=== PATIENT | female | born 1940 | race Caucasian/White ===

== ENCOUNTER → 2016-05-01 | Outpatient (CLI) | payer MEDICARE ==
--- NOTE | 2016-05-01 13:34 | MM ---
Reason for exam: history of breast cancer, mastectomy. Last mammogram was performed 1 year ago. History: Patient is postmenopausal and has history of breast cancer at age 47. Family history of breast cancer in sister at age 64 and breast cancer in mother. Benign excisional biopsy of the right breast, 2010. Mastectomy of the left breast, 1987. Chemotherapy. Took estrogen for 6 years beginning at age 41. Physical Findings: Nurse did not find any significant physical abnormalities on exam. MG 3D Diag Mammo W/Cad RT CC and MLO view(s) were taken of the right breast. Prior study comparison: April 30, 2015, right breast MG 3d diag mammo w/cad RT. April 10, 2014, right breast MG diagnostic mammo RT w CAD. The breast tissue is heterogeneously dense. This may lower the sensitivity of mammography. Benign calcifications. Previous mammotome biopsy in the right breast. Nodular density inner lower right breast stable since 2011. These results were verbally communicated with the patient and result sheet given to the patient on 05/01/16. ASSESSMENT: Benign, BI-RAD 2 RECOMMENDATION: Follow-up diagnostic mammogram of the right breast in 1 year.
== END ==
LOC: RADMAMWWP 12:49
PROVIDERS: ATTEND Internal Medicine Hematology & Oncology
DX: Z85.3 Personal history of malignant neoplasm of breast (principal)
CPT/HCPCS: 77051; G0206; G0279

== ENCOUNTER → 2017-05-03 | Outpatient (CLI) | payer MEDICARE ==
--- NOTE | 2017-05-03 11:22 | MM ---
Reason for exam: additional evaluation requested from prior study. Last mammogram was performed 1 year ago. History: Patient is postmenopausal and has history of breast cancer at age 47. Family history of breast cancer in sister at age 64 and breast cancer in mother. Benign excisional biopsy of the right breast, 2010. Mastectomy of the left breast, 1987. Chemotherapy. Took estrogen for 6 years beginning at age 41. Physical Findings: Nurse did not find any significant physical abnormalities on exam. MG 3D Diag Mammo W/Cad RT CC and MLO view(s) were taken of the right breast. Prior study comparison: May 01, 2016, right breast MG 3d diag mammo w/cad RT. April 30, 2015, right breast MG 3d diag mammo w/cad RT. The breast tissue is heterogeneously dense. This may lower the sensitivity of mammography. Finding: There are typically benign round calcifications in the right breast. Previous mammotome biopsy in the right breast. There is no discrete abnormality. These results were verbally communicated with the patient and result sheet given to the patient on 05/03/17. ASSESSMENT: Benign, BI-RAD 2 RECOMMENDATION: Follow-up diagnostic mammogram of the right breast in 1 year.
== END | disposition home or self-care (01) ==
LOC: RADMAMWWP 10:22
PROVIDERS: ATTEND Internal Medicine Hematology & Oncology
DX: Z08 Encounter for follow-up examination after completed treatment for malignant neoplasm (principal); Z85.3 Personal history of malignant neoplasm of breast
CPT/HCPCS: 77065; G0279

== ENCOUNTER → 2017-06-21 | Outpatient (CLI) | payer MEDICARE ==
--- NOTE | 2017-06-21 14:22 | BD ---
EXAMINATION TYPE: MG DEXA axial skeleton. DATE OF EXAM: 06/21/2017 COMPARISON: Most recent DEXA bone scan April 26, 2015. CLINICAL HISTORY: Postmenopausal female. Disorder of bone density in structure per order. Height: 61.5 Weight: 143.8 FRAX RISK QUESTIONS: Alcohol (3 or more units per day): no Family History (Parent hip fracture): no Glucocorticoids (More than 3mos): no (Ex: prednisone, prednisolone, methylprednisolone, dexamethasone, and hydrocortisone). History of Fracture in Adulthood: yes Secondary Osteoporosis: 1. Type 1 Diabetes: no 2. Hyperthyroidism: no 3. Menopause before 45: yes 4. Malnutrition: no 5. Chronic liver disease: no Rheumatoid Arthritis: no Current Tobacco Use: no RISK FACTORS HISTORY OF: Surgery to Spine/Hip(right/left)/Wrist (right/left): no Family History of Osteoporosis: yes Active: yes Diet low in dairy products/other sources of calcium: no Postmenopausal woman: hysterectomy 1982 Lost more than 2 inches in height since high school: no Frequent falls: no Adrenal Insufficiency: no MEDICATIONS: Lipitor, metformin, Prilosec Additional History: EXAM MEASUREMENTS: Bone mineral densitometry was performed using the [employer] System. Bone mineral density as measured about the Lumbar spine is: ----- L1-L4(G/cm2): 1.230 T Score Values are as follows: ----- L2: 0.5 ----- L3: 2.1 ----- L4: 0.9 ----- L1-L4: 0.4 Bone mineral density has: increased 6.1 % since study of: 04.26.2015 Bone mineral density about the R hip (g/cm2): 0.949 Bone mineral density about the L hip (g/cm2): 0.946 T Score values are as follows: -----R Neck: -0.6 -----L Neck: -0.7 -----R Total: -0.1 -----L Total: -0.2 Bone mineral density has: decreased -0.5 % since study of: 04.26.2015 IMPRESSION: Normal (Values between +1 and -1 indicate normal bone mass). Consider repeating this study in 5 year s or sooner if there is some new clinical indication. No significant change in bone density from prio r. NOTE: T-SCORE=SD OF THE YOUNG ADULT MEAN.
== END | disposition home or self-care (01) ==
LOC: RADBDWWP 13:20
PROVIDERS: ATTEND Family Medicine
DX: M85.9 Disorder of bone density and structure, unspecified (principal)
CPT/HCPCS: 77080

== ENCOUNTER → 2018-05-21 | Outpatient (CLI) | payer MEDICARE ==
--- NOTE | 2018-05-21 14:14 | MM ---
Reason for exam: additional evaluation requested from prior study. Last mammogram was performed 1 year and 1 month ago. History: Patient is postmenopausal and has history of breast cancer at age 47. Family history of breast cancer in sister at age 64 and breast cancer in mother. Benign excisional biopsy of the right breast, 2010. Mastectomy of the left breast, 1987. Chemotherapy. Took estrogen for 6 years beginning at age 41. Physical Findings: Nurse did not find any significant physical abnormalities on exam. MG 3D Diag Mammo W/Cad RT CC and MLO view(s) were taken of the right breast. Prior study comparison: May 03, 2017, right breast MG 3d diag mammo w/cad RT. May 01, 2016, right breast MG 3d diag mammo w/cad RT. The breast tissue is heterogeneously dense. This may lower the sensitivity of mammography. There are benign appearing round calcifications in the right breast. Previous mammotome biopsy in the right breast. There is no discrete abnormality. These results were verbally communicated with the patient and result sheet given to the patient on 05/21/18. ASSESSMENT: Benign, BI-RAD 2 RECOMMENDATION: Follow-up diagnostic mammogram of the right breast in 1 year.
== END | disposition home or self-care (01) ==
LOC: RADMAMWWP 12:36
PROVIDERS: ATTEND Family Medicine
DX: Z08 Encounter for follow-up examination after completed treatment for malignant neoplasm (principal); Z90.12 Acquired absence of left breast and nipple; Z85.3 Personal history of malignant neoplasm of breast
CPT/HCPCS: 77065; G0279; 77061

== ENCOUNTER → 2018-05-25 | Outpatient (CLI) | payer MEDICARE ==
--- NOTE | 2018-05-25 12:01 | XR ---
EXAMINATION TYPE: XR chest 2V, XR ribs RT DATE OF EXAM: 05/25/2018 COMPARISON: NONE HISTORY: Chest and right-sided rib pain after coughing injury. TECHNIQUE: Frontal and lateral views of the chest are obtained. A frontal and oblique images of righ t-sided ribs are acquired. FINDINGS: There is chronic parenchymal change without suspicious focal air space opacity, pleural ef fusion, or pneumothorax seen. The cardiac silhouette size is upper limits of normal with atheroscler otic and ectatic thoracic aorta. Slight underlying levoconvex scoliotic curvature is present. Osseous structures are somewhat demineralized. Dedicated images of right-sided ribs show age-indeterminate but suspected old displaced fractures pos terior lateral right seventh and eighth rib. Overlying soft tissue is unremarkable. IMPRESSION: 1. Chronic changes without acute pulmonary process. 2. Age-indeterminate but suspected old displaced fractures posterior lateral right seventh and eighth ribs.
== END | disposition home or self-care (01) ==
LOC: RADXRMAIN 11:29
PROVIDERS: ATTEND Physician Assistant Medical
DX: R91.8 Other nonspecific abnormal finding of lung field (principal); R07.82 Intercostal pain; M81.0 Age-related osteoporosis without current pathological fracture
CPT/HCPCS: 71046

== ENCOUNTER → 2019-01-08 | Outpatient (CLI) | payer MEDICARE ==
[~2019-01-08] MED LIST: SODIUM CHLORIDE 0.9% 500 ML 500 ML in EMPTY BAG 1 BAG IV PRN; ZOLEDRONIC ACID 5 MG in SODIUM CHLORIDE 0.9% 100 ML IV NR
[2019-01-08 10:51] VITALS: BP 151/79; PULSE 70; RESP 16; TEMP 98.1
== END ==
LOC: PROCWHC3 10:28
PROVIDERS: ATTEND Family Medicine
DX: M81.0 Age-related osteoporosis without current pathological fracture (principal)
CPT/HCPCS: 96365; J3489

== ENCOUNTER → 2019-05-26 | Outpatient (CLI) | payer MEDICARE ==
--- NOTE | 2019-05-26 16:09 | XR ---
EXAMINATION TYPE: XR cervical spine comp DATE OF EXAM: 05/26/2019 TECHNIQUE: Frontal, lateral, oblique, swimmers, and open mouth view of the cervical spine are obtaine d. HISTORY: M54.2 cervicalgia COMPARISON: None FINDINGS: There is retrolisthesis that is mild of C3 on C4 and C4 on C5. No abnormal prevertebral sof t tissue swelling. Multilevel facet arthropathy. Mild bilateral neural foraminal narrowing at C2-C3 a nd C3-C4 on the right as well as at C2-C3 on the left radiographically. Extensive atherosclerosis of the carotid arteries. Odontoid appears intact. Diffuse osseous demineralization is seen. No compressi on deformity of the cervical spine. IMPRESSION: 1. No acute fracture of the cervical spine. 2. Multilevel malalignment, likely on a degenerative basis. 3. Incidentally noted extensive bilateral carotid arterial calcifications. Carotid arterial ultrasoun d could be performed for further evaluation. 4. Moderate multilevel degenerative disc disease of the cervical spine. 5. Diffuse osseous demineralization.
== END | disposition home or self-care (01) ==
LOC: RADXRMAIN 14:06
PROVIDERS: ATTEND Family Medicine
DX: M50.30 Other cervical disc degeneration, unspecified cervical region (principal); M81.0 Age-related osteoporosis without current pathological fracture
CPT/HCPCS: 72050

== ENCOUNTER → 2019-07-03 | Outpatient (CLI) | payer MEDICARE ==
--- NOTE | 2019-07-04 09:44 | MM ---
Reason for exam: additional evaluation requested from prior study. Last mammogram was performed 1 year and 1 month ago. History: Patient is postmenopausal and has history of breast cancer at age 47. Family history of breast cancer in sister at age 64 and breast cancer in mother. Benign excisional biopsy of the right breast, 2010. Mastectomy of the left breast, 1987. Chemotherapy. Took estrogen for 6 years beginning at age 41. Physical Findings: Nurse did not find any significant physical abnormalities on exam. MG 3D Diag Mammo W/Cad RT CC, MLO, XCCL, and spot compression CC view(s) were taken of the right breast. Prior study comparison: May 21, 2018, right breast MG 3d diag mammo w/cad RT. May 03, 2017, right breast MG 3d diag mammo w/cad RT. The breast tissue is heterogeneously dense. This may lower the sensitivity of mammography. Benign appearing calcifications in the right breast. Lateral right asymmetry resolves on additional views. Right biopsy marker. These results were verbally communicated with the patient and result sheet given to the patient on 07/03/19. ASSESSMENT: Benign, BI-RAD 2 RECOMMENDATION: Follow-up diagnostic mammogram of the right breast in 1 year.
== END | disposition home or self-care (01) ==
LOC: RADMAMWWP 13:37
PROVIDERS: ATTEND Family Medicine
DX: Z08 Encounter for follow-up examination after completed treatment for malignant neoplasm (principal); Z85.3 Personal history of malignant neoplasm of breast; Z90.12 Acquired absence of left breast and nipple
CPT/HCPCS: 77065; G0279; 77061

== ENCOUNTER 2020-02-23 13:09 | Emergency (ER) | payer MEDICARE ==
[2020-02-23 13:14] VITALS: TEMP 98.3
[2020-02-23] MEDS ORDERED: HYDROmorphone 1 MG/ML 1 ML SYRINGE IM STA (13:30)
--- NOTE | 2020-02-23 14:00 | XR ---
EXAMINATION TYPE: XR thoracic spine 2V DATE OF EXAM: 02/23/2020 CLINICAL HISTORY: Fall with mid back pain. TECHNIQUE: Frontal, lateral, and swimmer's view of thoracic spine are obtained. COMPARISON: None. FINDINGS: Osseous structures are demineralized. Thoracic spine show satisfactory alignment without ev idence of acute fracture or dislocation. Moderate disc space narrowing L1-L2 level. Vertebral body h eights and disc space heights otherwise are preserved. Visualized ribs are intact bilaterally. Athero sclerotic change overlying abdominal aorta. IMPRESSION: No acute fracture or dislocation is seen in the thoracic spine.
--- NOTE | 2020-02-23 14:00 | ED ---
Fall HPI - General Chief Complaint: Fall Stated Complaint: fall, low back pain Time Seen by Provider: 02/23/20 13:20 Source: patient, RN notes reviewed Mode of arrival: wheelchair - History of Present Illness Initial Comments: This is an 79-year-old female sent emergency Department chief complaint of a trip and fall. Patient states she was stepping over a small fence when she caught her heel. Patient fell onto her left side. Patient went left-sided rib pain, mid back pain. No abdominal pain no anterior chest pain no head injury no loss conscious denies any neck pain. Patient states that she has pain with any movement and deep inspiration does not feel short of breath at rest. Denies blood thinners. - Related Data Home Medications Medication Instructions Recorded Confirmed Atorvastatin [Lipitor] 80 mg PO HS 01/02/14 01/08/19 Calcium Carbonate/Vitamin D3 1 each PO BID 01/02/14 01/08/19 [Caltrate 600 Plus D3 Tablet] Fish Oil/Dha/Epa [Fish Oil 1,200 1 each PO BID 01/02/14 01/08/19 mg Fish Oil] Gluc HCl/Andrew/Mv/Min Aa/Hb 162 1 each PO DAILY 01/02/14 01/08/19 [Glucosamine-Chondroitin Caplet] Omeprazole [PriLOSEC] 20 mg PO DAILY 01/02/14 01/08/19 Uafcfck-Bolc-Dqlk [id number] 2 each PO DAILY PRN 09/09/14 01/08/19 [Excedrin] Cinnamon Bark [Cinnamon] 1,000 mg PO BID 09/09/14 01/08/19 Multivitamins, Thera [Multivitamin 1 each PO DAILY 09/09/14 01/08/19 (formulary)] metFORMIN HCL [Glucophage] 850 mg PO BID 02/22/17 01/08/19 Previous Rx's Medication Instructions Recorded Aspirin 325 mg PO DAILY #30 tab 09/12/14 Ibuprofen [Motrin] 600 mg PO Q8HR PRN #20 tab 02/23/20 Allergies Allergy/AdvReac Type Severity Reaction Status Date / Time sulfamethoxazole Allergy Anaphylaxis Verified 02/23/20 13:14 [From Bactrim] trimethoprim [From Bactrim] Allergy Anaphylaxis Verified 02/23/20 13:14 Review of Systems ROS Statement: Those systems with pertinent positive or pertinent negative responses have been documented in the HPI. ROS Other: All systems not noted in ROS Statement are negative. Past Medical History Past Medical History: Coronary Artery Disease (CAD), Cancer, Hyperlipidemia Additional Past Medical History / Comment(s): Breast - 1988. OSTEOPOROSIS. History of Any Multi-Drug Resistant Organisms: None Reported Past Surgical History: Breast Surgery, Hysterectomy, Orthopedic Surgery Additional Past Surgical History / Comment(s): left breast mastectomy, left leg stent, ankle/foot sx Past Anesthesia/Blood Transfusion Reactions: No Reported Reaction Past Psychological History: No Psychological Hx Reported Smoking Status: Never smoker Past Alcohol Use History: None Reported Past Drug Use History: None Reported - Past Family History Mother Family Medical History: Cancer Additional Family Medical History / Comment(s): breast Sister(s) Family Medical History: Cancer, Deep Vein Thrombosis (DVT) Additional Family Medical History / Comment(s): breast ca Brother(s) Family Medical History: Cancer Additional Family Medical History / Comment(s): colon General Exam Limitations: no limitations General appearance: alert, in no apparent distress Head exam: Present: atraumatic, normocephalic, normal inspection Eye exam: Present: normal appearance, PERRL, EOMI. Absent: scleral icterus, conjunctival injection, periorbital swelling Neck exam: Present: normal inspection, full ROM. Absent: tenderness, meningismus, lymphadenopathy Respiratory exam: Present: normal lung sounds bilaterally, chest wall tenderness (Moderate left lateral to posterior rib tenderness, no ecchymosis, no obvious deformity). Absent: respiratory distress, wheezes, rales, rhonchi, stridor Cardiovascular Exam: Present: regular rate, normal rhythm, normal heart sounds. Absent: systolic murmur, diastolic murmur, rubs, gallop, clicks GI/Abdominal exam: Present: soft, normal bowel sounds. Absent: distended, tenderness, guarding, rebound, rigid Back exam: Present: full ROM, tenderness, paraspinal tenderness (Thoracic), vertebral tenderness Neurological exam: Present: alert, oriented X3, CN II-XII intact, reflexes normal. Absent: motor sensory deficit Skin exam: Present: warm, dry, intact, normal color. Absent: rash Course Vital Signs 02/23/20 02/23/20 13:12 14:05 Temperature 98.3 F Pulse Rate 75 63 Respiratory 20 18 Rate Blood Pressure 190/103 142/77 O2 Sat by Pulse 99 92 L Oximetry Medical Decision Making - Medical Decision Making X-rays reviewed by radiologist no acute fracture or pneumothorax no thoracic fracture though upon review appears to be a nondisplaced rib fracture no pneumothorax. Patient was discharged with symptoms from her, pain medication with close follow-up. Disposition Clinical Impression: Fall, Left rib fracture Disposition: HOME SELF-CARE Condition: Stable Instructions (If sedation given, give patient instructions): Rib Fracture (ED) Additional Instructions: Please return to the Emergency Department if symptoms worsen or any other concerns. Prescriptions: Ibuprofen [Motrin] 600 mg PO Q8HR PRN #20 tab PRN Reason: Pain Is patient prescribed a controlled substance at d/c from ED?: No Referrals: Dony Bravo DO [Primary Care Provider] - 1-2 days Time of Disposition: 14:16
--- NOTE | 2020-02-23 14:04 | XR ---
EXAMINATION TYPE: XR ribs LT w pa chest xray DATE OF EXAM: 02/23/2020 CLINICAL HISTORY: Fall with chest pain. TECHNIQUE: Single frontal view of the chest is obtained. Frontal and oblique images left-sided ribs. COMPARISON: Chest x-ray May 25, 2018 FINDINGS: There is chronic parenchymal changes without suspicious new focal air space opacity, pleur al effusion, or pneumothorax seen. The cardiac silhouette size is stable and upper limits of normal with atherosclerotic aorta. The osseous structures are demineralized. Fracture deformities lateral mid ribs redemonstrated. Dedicated images the left-sided ribs show no acute displaced fracture. Overlying soft tissue is unrem arkable. IMPRESSION: 1. Chronic parenchymal changes without new acute pulmonary process. 2. No acute displaced left-sided rib fractures are seen.
[2020-02-23 14:08] VITALS: BP 142/77; PULSE 63; RESP 18
[2020-02-23] MEDS ORDERED: ACET/COD 300 MG/30 MG STARTER PACK 6 TAB BTL PO STA (14:17)
== END 2020-02-23 14:36 | disposition home or self-care (01) ==
LOC: EC 13:09
DX: S22.32XA Fracture of one rib, left side, initial encounter for closed fracture (principal); E78.5 Hyperlipidemia, unspecified; Z79.899 Other long term (current) drug therapy; Z88.1 Allergy status to other antibiotic agents; Z88.2 Allergy status to sulfonamides; Z90.12 Acquired absence of left breast and nipple; Z85.3 Personal history of malignant neoplasm of breast; Z80.3 Family history of malignant neoplasm of breast; W01.0XXA Fall on same level from slipping, tripping and stumbling without subsequent striking against object, initial encounter; Y92.009 Unspecified place in unspecified non-institutional (private) residence as the place of occurrence of the external cause
CPT/HCPCS: 99283 ×2; 96372 ×2; 71101; 72070; J1170

== ENCOUNTER → 2020-06-29 | Outpatient (CLI) | payer MEDICARE ==
--- NOTE | 2020-06-29 13:37 | BD ---
EXAMINATION TYPE: Axial Bone Density DATE OF EXAM: 06/29/2020 COMPARISON: Prior DEXA bone scan May 06, 2015. CLINICAL HISTORY: Postmenopausal female with age-related osteoporosis. Height: 5 FT 1 IN Weight: 139 FRAX RISK QUESTIONS: Alcohol (3 or more units per day): NO Family History (Parent hip fracture): NO Glucocorticoids (More than 3mos): NO (Ex: prednisone, prednisolone, methylprednisolone, dexamethasone, and hydrocortisone). History of Fracture in Adulthood: YES Secondary Osteoporosis: 1. Type 1 Diabetes: NO 2. Hyperthyroidism: NO 3. Menopause before 45: YES 4. Malnutrition: NO 5. Chronic liver disease: NO Rheumatoid Arthritis: NO Current Tobacco Use: NO RISK FACTORS HISTORY OF: Family History of Osteoporosis: UNSURE Active: NO Diet low in dairy products/other sources of calcium: NO Postmenopausal woman: TOTAL HYST AGE 41 Take estrogen and/or progesterone medications: FOR A SHORT TIME Lost more than 2 inches in height since high school: YES MEDICATIONS: Additional Medications: LIPITOR, METFORMIN, PRILOSEC, Additional History: BREAST CANCER 1987 CHEMO EXAM MEASUREMENTS: Bone mineral densitometry was performed using the [employer] System. Bone mineral density as measured about the Lumbar spine is: ----- L1-L4(G/cm2): 1.279 T Score Values are as follows: ----- L2: 0.5 ----- L3: 2.7 ----- L4: 1.9 ----- L1-L4: 0.8 Bone mineral density has: INCREASED 4.5 % since study of: 2017 Bone mineral density about the R hip (g/cm2): 0.987 Bone mineral density about the L hip (g/cm2): 0.984 T Score values are as follows: -----R Neck: -0.4 -----L Neck: -0.4 -----R Total: 0.0 -----L Total: -0.1 Bone mineral density has: INCREASED 2.1 % since study of: 2018 IMPRESSION: Normal (Values between +1 and -1 indicate normal bone mass). Consider repeating this study in 5 year s or sooner if there is some new clinical indication. NOTE: T-SCORE=SD OF THE YOUNG ADULT MEAN.
== END ==
LOC: RADBDWWP 09:13
PROVIDERS: ATTEND Family Medicine
DX: M81.0 Age-related osteoporosis without current pathological fracture (principal); Z78.0 Asymptomatic menopausal state; Z85.3 Personal history of malignant neoplasm of breast
CPT/HCPCS: 77080

== ENCOUNTER → 2020-07-30 | Outpatient (CLI) | payer MEDICARE ==
[2020-07-30 10:43] VITALS: BP 178/82; PULSE 72; RESP 15; TEMP 98.2
== END ==
LOC: PROCWHC3 10:06
PROVIDERS: ATTEND Family Medicine
DX: M81.0 Age-related osteoporosis without current pathological fracture (principal)
CPT/HCPCS: 96365; J3489

== ENCOUNTER → 2020-08-05 | Outpatient (CLI) | payer MEDICARE ==
--- NOTE | 2020-08-05 17:14 | MR ---
EXAMINATION TYPE: MR cervical spine wo con DATE OF EXAM: 08/05/2020 COMPARISON: Radiograph 05/26/2019 HISTORY: 80-year-old female Neck pain, headaches x 1 year. M54.2, M5032. TECHNIQUE: Multiplanar, multisequence images of the cervical spine were acquired. FINDINGS: No craniocervical junction abnormality, predental space widening, or prevertebral soft tissue swellin g. There is a round 9 mm T2 mildly hyperintense in T1 intermediate intensity lesion within the right jose e of the nasopharynx. A CT in 3 months is recommended to reassess and exclude any enlarging mass. Mild to moderate multilevel disc/endplate degenerative change, greatest from C4 through C7 levels wit h disc space narrowing, discussed by complex formation, and accentuated cervical lordosis. Overall alignment is maintained. There is some dextroconvex curvature of the cervical spine that coul d be due to muscle spasm, positioning, or underlying scoliosis below. There is multilevel facet and uncovertebral joint arthropathy. Ligamentum flavum thickening noted fro m C3 through C7 levels. Changes result in mild overall narrowing of the spinal canal throughout these levels from C3 through C7. No high-grade canal compromise or cord compression. At C2-C3, no significant neural foraminal stenosis. At C3-C4, facet arthropathy without significant neuroforaminal stenosis. At C4-C5, facet and uncovertebral joint arthropathy with mild right neural foraminal stenosis. At C5-C6, facet and uncovertebral joint arthropathy. Mild right neural foraminal stenosis. At C6-C7, facet and uncovertebral joint arthropathy with mild right neural foraminal stenosis. At C7-T1, no significant neural foraminal stenosis. No prevertebral or paravertebral soft tissue abnormality otherwise seen. Normal course, caliber, and signal intensity of the cervical spinal cord. IMPRESSION: 1. Moderate degenerative disc disease from C3 through C7 levels with corresponding ligamentum flavum thickening, accentuated cervical lordosis, multilevel facet and uncovertebral joint arthropathy. 2. Changes result in mild narrowing of the spinal canal from C3 through C7. No high-grade canal compr omise or cord compression. 3. Variable mild neural foraminal stenoses as outlined above. 4. A 9 mm lesion within the right side of the nasopharynx. Recommend contrast enhanced CT soft tissue neck in 3 months to reassess and exclude any enlarging mass. A mucosal retention cyst is suspected.
== END | disposition home or self-care (01) ==
LOC: RADMRIMAIN 14:37
PROVIDERS: ATTEND Family Medicine
DX: M48.02 Spinal stenosis, cervical region (principal); M50.321 Other cervical disc degeneration at C4-C5 level; M50.322 Other cervical disc degeneration at C5-C6 level; M50.323 Other cervical disc degeneration at C6-C7 level
CPT/HCPCS: 72141

== ENCOUNTER → 2020-08-25 | Outpatient (CLI) | payer MEDICARE ==
--- NOTE | 2020-08-25 11:34 | MM ---
Reason for exam: additional evaluation requested from prior study. Last mammogram was performed 1 year and 2 months ago. History: Patient is postmenopausal and has history of breast cancer at age 47. Family history of breast cancer in sister at age 64 and breast cancer in mother. Benign excisional biopsy of the right breast, 2010. Mastectomy of the left breast, 1987. Chemotherapy. Took estrogen. Physical Findings: Nurse did not find any significant physical abnormalities on exam. MG 3D Diag Mammo W/Cad RT CC and MLO view(s) were taken of the right breast. Prior study comparison: July 03, 2019, right breast MG 3d diag mammo w/cad RT. May 21, 2018, right breast MG 3d diag mammo w/cad RT. The breast tissue is heterogeneously dense. This may lower the sensitivity of mammography. Stable benign calcifications. There is no discrete abnormality. No significant new findings when compared with previous films. These results were verbally communicated with the patient and result sheet given to the patient on 08/25/20. ASSESSMENT: Benign, BI-RAD 2 RECOMMENDATION: Follow-up diagnostic mammogram of the right breast in 1 year.
== END | disposition home or self-care (01) ==
LOC: RADMAMWWP 10:45
PROVIDERS: ATTEND Family Medicine
DX: R92.1 Mammographic calcification found on diagnostic imaging of breast (principal); Z78.0 Asymptomatic menopausal state; Z85.3 Personal history of malignant neoplasm of breast; Z80.3 Family history of malignant neoplasm of breast
CPT/HCPCS: 77065; G0279; 77061

== ENCOUNTER → 2020-11-15 | Outpatient (CLI) | payer MEDICARE ==
[2020-11-15 14:48] LABS: African American GFR (CKD) >90 (>60 ml/min/1.73 sqM); Blood Urea Nitrogen 17 mg/dL (7-17); Non-African American GFR(CKD) 87 (>60 ml/min/1.73 sqM)
--- NOTE | 2020-11-15 15:18 | CT ---
History is a 37 EXAMINATION TYPE: CT soft tissue neck w con DATE OF EXAM: 11/15/2020 COMPARISON: None HISTORY: neck pain, swelling to right side, hx of breast ca CT DLP: 303 mGycm CONTRAST: CT scan of the neck is performed with IV Contrast, patient injected with 100 mL of Isovue 300. Contrast enhanced CT of the neck was performed from the skull base through the lung apices. AIRWAY: The supraglottic, glottic, and subglottic portions of the airway appear patent and free of mass. SALIVARY GLANDS: The submandibular and parotid glands are free of mass or inflammatory process. THYROID GLAND: No nodules or masses seen. LYMPH NODES: No adenopathy seen greater than 1cm. LUNG APICES: No nodule or mass is seen. OTHER: Moderate to severe calcified plaque carotid bulbs. Moderate to severe degenerative change of the cervical spine. No abscess seen. IMPRESSION: 1. Subcentimeter lymph nodes seen within the neck bilaterally. No adenopathy greater than 1 cm. 2. Moderate to severe calcified plaque carotid bulbs.
== END | disposition home or self-care (01) ==
LOC: RADCTMAIN 14:08
PROVIDERS: ATTEND Family Medicine
DX: R22.1 Localized swelling, mass and lump, neck (principal); M54.2 Cervicalgia; Z85.3 Personal history of malignant neoplasm of breast; I65.23 Occlusion and stenosis of bilateral carotid arteries
CPT/HCPCS: 82565; 84520; 70491; 36415; Q9967

== ENCOUNTER → 2021-11-23 | Outpatient (CLI) | payer MEDICARE ==
--- NOTE | 2021-11-23 13:58 | MM ---
Reason for Exam: Hx of breast cancer, mastectomy. Last mammogram was performed 1 year(s) and 3 month(s) ago. Patient History: Menarche at age 13. First Full-Term at age 18. Left ovary removed at age 41. Right ovary removed at age 41. Hysterectomy at age 41. Postmenopausal. Breast cancer, age 47. Estrogen, ending at age 47. 2010, Benign Excisional Biopsy on the right side. 1987, Mastectomy on the Left side. Chemotherapy. Niece had breast cancer at or over age 50. Maternal cousin had breast cancer. Niece had breast cancer at or over age 50. Sister had breast cancer, age 64. Mother had breast cancer, age 89. Prior Study Comparison: 05/21/2018 Right Diagnostic Mammogram, [facility]. 07/03/2019 Right Diagnostic Mammogram, [facility]. 08/25/2020 Right Diagnostic Mammogram, [facility]. Tissue Density: Right: The breast tissue is heterogeneously dense. This may lower the sensitivity of mammography. Findings: Analyzed By CAD. Numerous benign oil cyst calcifications are redemonstrated. No significant change from prior exams. Overall Assessment: Benign, BI-RAD 2 Management: Screening Mammogram of the right breast in 1 year. 1. Patient should continue monthly self breast exams. 2. A clinical breast exam by your physician is recommended on an annual basis. 3. This exam should not preclude additional follow-up of suspicious palpable abnormalities. Results were given to the patient verbally at the time of exam. Electronically signed and approved by: Mookie Allen M.D. Radiologist
== END | disposition home or self-care (01) ==
LOC: RADMAMWWP 13:03
PROVIDERS: ATTEND Family Medicine
DX: R92.8 Other abnormal and inconclusive findings on diagnostic imaging of breast (principal); Z78.0 Asymptomatic menopausal state; Z80.3 Family history of malignant neoplasm of breast
CPT/HCPCS: 77065; G0279; 77061

== ENCOUNTER 2022-01-13 07:27 | Day surgery (SDC) | payer MEDICARE ==
[2022-01-11 15:08] VITALS: BMI 25.6
[~2022-01-13 07:27] MED LIST changes: +DEXAMETHASONE SOD PHOSPHATE 4 MG/ML 1 ML VIAL IV ONE; +HYDROmorphone 0.5 MG/0.5 ML SYRINGE IVP PRN; +LACTATED RINGERS 1,000 ML IV SCH; +LIDOCAINE 1% (10MG/ML) FOR IV START INTRADERMA PRN; +MIDAZOLAM 2 MG/2 ML VIAL IV PRN; +ONDANSETRON 4 MG/2 ML VIAL IVP ONE; -SODIUM CHLORIDE 0.9% 500 ML 500 ML in EMPTY BAG 1 BAG IV PRN; -ZOLEDRONIC ACID 5 MG in SODIUM CHLORIDE 0.9% 100 ML IV NR
[2022-01-13 08:11] VITALS: RESP 16
[2022-01-13 08:13] LABS: Glucose,Whole Blood 130 mg/dL (70-110)
[2022-01-13] MEDS ORDERED: MIDAZOLAM 2 MG/2 ML VIAL IV ONE (08:26)
[2022-01-13] MEDS ORDERED: PROPOFOL 10 MG/ML 20 ML VIAL IV ONE (08:58)
[2022-01-13] MEDS ORDERED: SUCCINYLCHOLINE CHLORIDE 200 MG/10 ML VIAL IV ONE (08:58)
[2022-01-13] MEDS ORDERED: LIDOCAINE 2% INJ 20 MG/ML (2 ML VIAL) ONE (08:58)
[2022-01-13] MEDS ORDERED: ePHEDrine 50 MG/ML 1 ML VIAL ONE (08:58)
[2022-01-13] MEDS ORDERED: PHENYLEPHRINE-0.9% NACL SYG 1,000 MCG/10 ML SYRINGE ONE (08:58)
[2022-01-13] MEDS ORDERED: fentaNYL (PF) 50 MCG/ML 2 ML AMP ONE (08:58)
[2022-01-13] MEDS ORDERED: DEXAMETHASONE SOD PHOSPHATE 4 MG/ML 1 ML VIAL ONE (08:58)
[2022-01-13] MEDS ORDERED: ROPIVACAINE 5 MG/ML 30 ML VIAL ONE (08:58)
[2022-01-13] MEDS ORDERED: ceFAZolin 1,000 MG in SODIUM CHLORIDE 0.9% 1,000 ML IRRIGATION ONE (09:05)
[2022-01-13] MEDS ORDERED: LACTATED RINGERS 1,000 ML IV ONE (10:39)
--- NOTE | 2022-01-13 10:39 | XR ---
Intraoperative/procedural fluoroscopic services were provided for left foot bunionectomy. Total fluor oscopy time is 9 seconds with a total of 2 submitted images to PACS. Please see the operative note fo r further details.
[2022-01-13 10:53] VITALS: TEMP 97.2
--- NOTE | 2022-01-13 11:05 | P.OP ---
Date of Procedure: 01/13/22 Preoperative Diagnosis: Hallux valgus left foot Postoperative Diagnosis: Same Procedure(s) Performed: Lapidus bunionectomy left foot Implants: Arthrex plantar Lapidus plate Arthrex compression staple Arthrex AlloMatrix Anesthesia: KARLI Surgeon: Devan Adhikari Estimated Blood Loss (ml): 5 Pathology: none sent Condition: stable Disposition: PACU Indications for Procedure: Patient has a HEENT full hallux valgus deformity with associated instability of the plantar ligamentous structures of the first tarsometatarsal joint. The instability is caused sagittal plane collapse of the medial arch. Surgery is to correct deformity in both the transverse as well as a sagittal planes. Description of Procedure: Prior to the patient being brought to the operative room, anesthesia administered a nerve block of the left lower extremity. The patient brought into the operative room placed on table supine position. Timeout was taken to confirm correct patient identifiers, correct LE of surgery, and correct procedure. When the staff in the room were in agreement with the timeout, the patient was induced placed under general anesthesia. A tourniquet was placed on the left ankle on the left foot was prepped and draped usual manner. The foot was exsanguinated with an Esmarch bandage and then the tourniquet inflated to 250 mmHg. Attention directed over the medial aspect of the foot where an incision was made beginning at the base of the proximal phalanx extending along the plantar aspect of the first metatarsal shaft all the way to the medial cuneiform. Incision was deepened down to the saphenous layer careful to identi fy, avoid, and retract any neurovascular structures and cauterize any bleeding vessels capsular incision was made over the first metatarsal phalangeal joint. Incisions were to semielliptical converging incisions and then the interposing piece of capsule was removed. The capsule was then reflected from its osseous attachments of the first metatarsal head. The sesamoid apparatus was distracted plantarly, and then the lateral sesamoid collateral ligament was transected lateral capsulotomy performed. Then attention was directed to the proximal aspect of the surgical site, where an incision was made to the deep fascia to expose the plantar surface of the first tarsometatarsal joint. Then a linear capsule incision was made dorsal to plantar to the first tarsometatarsal joint. Reduction clamp was used over the head of the first metatarsal into the fourth metatarsal to correct the intermetatarsal angle. Fluoroscopy was used to check the amount of reduction and once appropriate, a sagittal saw was used to resect the articular surface of the medial cuneiform parallel to the second metatarsal. Combination of osteotomes and curettes were used to remove the articular cartilage and subchondral bone of the base of the first metatarsal. Then the tarsometatarsal joint was held in reduction and slight plantarflexion to correct the instability the patient had, and then the sagittal saw was inserted to plane the surfaces of the bone so there was flat even contact. Then each surface was aggressively stressed fenestrated with a 2.0 mm drill bit. The wound is irrigated thoroughly with antibiotic saline. Arthrex AlloMatrix was placed between the arthrodesis segments and then the arthrodesis site was held in reduction and temporarily fixated. Fluoroscopy was used to check the reduction both on AP and lateral views to make sure that the correction desired was achieved. Once satisfied with the positioning, the plantar Lapidus plate was positioned across the joint. It was adjusted under fluoroscopy until properly aligned and then temporarily fixated. The first screw placed was the plantar distal screw which was a 35 nonlocking cortical screw. The second screw was the distal medial screw which was a 35 bicortical locking screw. Then a drill hole was made to the compression slot of the plate across the arthrodesis site. Once the drilling was completed the guidewires placed in the drill hole then fluoroscopy was used to make sure that the trajectory of the screw was appropriate. Once satisfied, the 4.0 cancellous screw was inserted and advanced until the head engaged the plate and compressed the arthrodesis site. Fluoroscopy confirmed the proper positioning of the screw and maintain correction of the deformity. The next screw was the proximal plantar screw wh ich is another locking/compression screw. The proximal medial hole in the plate was used as a guide for the drill to drill from the medial to the medial cuneiform to stabilize the joint. Drilling was done under direct fluoroscopic visualization, then once completed another combination compression/locking screw was placed until it engaged the plate. Under live fluoroscopy Visualization, stress placed between the first and second metatarsals to assess any instability at the intercuneiform joints and none was found. Temporary fixation was removed and then the wound thoroughly irrigated with antibiotic saline. A sagittal saw was used to resect small portion of bone off the medial aspect of the first metatarsal head due to protrusion. The wound is again irrigated with antibiotic saline. The first metatarsal phalangeal joint capsule was closed with 0 Vicryl while holding the great toe in a correct position deep fascia was also closed with 0 Vicryl along the proximal aspect of the surgical site. Subcutaneous closure was done with 4-0 Monocryl and skin closure done with 30 Stratafix in a running subcuticular manner. Dermal glue was applied and allowed to dry. Steri-Strips are placed across incision. An Arthrex jumpstart dressing was placed over the incision and then a dry sterile dressing applied to the left foot. The tourniquet was released and capillary refill return to all digits on the left foot. The patient was then placed in a fracture boot with ankle neutral position. Anesthesia was reversed and the patient was taken recovery with vital signs stable.
[2022-01-13 11:50] VITALS: BP 149/80; PULSE 97
--- NOTE | 2022-01-15 19:30 | P.ANPRN ---
Procedure Note - Anesthesia - Nerve Block Performed Left Popliteal Single Time Out Performed: Yes Date of Procedure: 01/13/22 Procedure Start Time: : Procedure Stop Time: : Location of Patient: PreOp Indication: Acute Post-Operative Pain, Requested by Surgeon Sedation Type: Sedate with meaningful contact maintained Preparation: Sterile Prep Position: Right Lateral Needle Types: Pajunk Needle Gauge: 21 Ultrasound used to visualize needle placement: Yes Ultrasound used to observe medication spread: Yes Blood Aspirated: No Pain Paresthesia on Injection Noted: No Resistance on Injection: Normal Image Stored and Saved: Yes Events: Uneventful and Well Tolerated (ropi .5% 20cc plus dexamethasone 4mg)
--- NOTE | 2022-01-15 19:32 | P.ANPRN ---
Procedure Note - Anesthesia - Nerve Block Performed Left Adductor Canal Single Time Out Performed: Yes Date of Procedure: 01/13/22 Procedure Start Time: : Procedure Stop Time: :35 Location of Patient: PreOp Indication: Acute Post-Operative Pain, Requested by Surgeon Sedation Type: Sedate with meaningful contact maintained Preparation: Sterile Prep Position: Supine Needle Types: Pajunk Needle Gauge: 21 Ultrasound used to visualize needle placement: Yes Ultrasound used to observe medication spread: Yes Blood Aspirated: No Pain Paresthesia on Injection Noted: No Resistance on Injection: Normal Image Stored and Saved: Yes Events: Uneventful and Well Tolerated (ropi .5% 20cc plus dexamethasone 4mg)
== END 2022-01-13 12:34 | disposition home or self-care (01) ==
LOC: OR 07:27
PROVIDERS: ATTEND Podiatrist
DX: M20.12 Hallux valgus (acquired), left foot (principal); M21.6X2 Other acquired deformities of left foot; G89.18 Other acute postprocedural pain; E78.5 Hyperlipidemia, unspecified; E11.9 Type 2 diabetes mellitus without complications; I11.9 Hypertensive heart disease without heart failure; I25.10 Atherosclerotic heart disease of native coronary artery without angina pectoris; H91.90 Unspecified hearing loss, unspecified ear; Z85.3 Personal history of malignant neoplasm of breast; Z97.3 Presence of spectacles and contact lenses; Z88.2 Allergy status to sulfonamides; Z98.890 Other specified postprocedural states; Z90.710 Acquired absence of both cervix and uterus; Z83.3 Family history of diabetes mellitus; Z87.891 Personal history of nicotine dependence; Z86.59 Personal history of other mental and behavioral disorders; Z79.02 Long term (current) use of antithrombotics/antiplatelets; Z79.82 Long term (current) use of aspirin; Z79.51 Long term (current) use of inhaled steroids; Z79.84 Long term (current) use of oral hypoglycemic drugs; Z79.83 Long term (current) use of bisphosphonates; Z79.01 Long term (current) use of anticoagulants
CPT/HCPCS: 28297; 64447; 64445; 76942; 73620; C1713 ×2; J2250; J0330; J1100; J0690 ×2; J2405; J3010; J2795; J2370; J2704; J2001

== ENCOUNTER 2024-02-22 16:03 | Emergency (ER) | payer MEDICARE ==
--- NOTE | 2024-02-22 16:28 | ED ---
General Adult HPI - General Chief complaint: Nausea/Vomiting/Diarrhea Stated complaint: Vomiting Time Seen by Provider: 02/22/24 16:09 Source: patient, EMS, RN notes reviewed Mode of arrival: EMS Limitations: no limitations - History of Present Illness Initial comments: Patient is an 83-year-old female presents the emergency department with concerns with vomiting. Onset of symptoms was today. Patient has had nausea and vomiting all day. Patient feels dehydrated. Patient received medication for nausea with some improvement of symptoms. No abdominal pain. No constipation or diarrhea. - Related Data Home Medications Medication Instructions Recorded Confirmed Fish Oil/Dha/Epa [Fish Oil 1,200 1 cap PO DAILY 01/02/14 02/22/24 mg Fish Oil] Gluc HCl/Andrew/Mv/Min Aa/Hb 162 1 tab PO DAILY 01/02/14 02/22/24 [Glucosamine-Chondroitin Caplet] Omeprazole [PriLOSEC] 20 mg PO DAILY 01/02/14 02/22/24 Cinnamon Bark [Cinnamon] 1,000 mg PO DAILY 09/09/14 02/22/24 L.acidoph,Paracasei, B.lactis 1 cap PO DAILY 01/11/22 02/22/24 [Probiotic] Multivit-Min/FA/Lycopen/Lutein 1 tab PO DAILY 01/11/22 02/22/24 [Centrum Silver Tablet] Ascorbic Acid [Vitamin C] 1,000 mg PO DAILY 02/22/24 02/22/24 Atorvastatin [Lipitor] 80 mg PO DAILY 02/22/24 02/22/24 Calcium Carbonate/Vitamin D3 1 tab PO DAILY 02/22/24 02/22/24 [Calcium 600 mg-Vit D3 10 mcg (400 Unit)] Losartan Potassium [Cozaar] 100 mg PO DAILY 02/22/24 02/22/24 Montelukast Sodium 10 mg PO DAILY 02/22/24 02/22/24 Ubidecarenone [Coenzyme Q10] 200 mg PO DAILY 02/22/24 02/22/24 hydroCHLOROthiazide [Hydrodiuril] 25 mg PO DAILY 02/22/24 02/22/24 metFORMIN HCL [Glucophage] 500 mg PO BID 02/22/24 02/22/24 Previous Rx's Medication Instructions Recorded Aspirin 325 mg PO DAILY #30 tab 09/12/14 Allergies Allergy/AdvReac Type Severity Reaction Status Date / Time sulfamethoxazole Allergy Anaphylaxis Verified 02/22/24 17:24 [From Bactrim] trimethoprim [From Bactrim] Allergy Anaphylaxis Verified 02/22/24 17:24 Review of Systems ROS Statement: Those systems with pertinent positive or pertinent negative responses have been documented in the HPI. ROS Other: All systems not noted in ROS Statement are negative. Constitutional: Denies: fever Eyes: Denies: eye pain ENT: Denies: ear pain Respiratory: Denies: dyspnea Cardiovascular: Denies: chest pain Endocrine: Denies: fatigue Gastrointestinal: Reports: as per HPI, nausea, vomiting. Denies: abdominal pain, diarrhea Musculoskeletal: Denies: back pain Past Medical History Past Medical History: Coronary Artery Disease (CAD), Cancer, Hyperlipidemia Additional Past Medical History / Comment(s): Breast - 1988. OSTEOPOROSIS. History of Any Multi-Drug Resistant Organisms: None Reported Past Surgical History: Breast Surgery, Hysterectomy, Orthopedic Surgery Additional Past Surgical History / Comment(s): left breast mastectomy, left leg stent, ankle/foot sx Past Anesthesia/Blood Transfusion Reactions: No Reported Reaction Past Psychological History: No Psychological Hx Reported Smoking Status: Never smoker Past Alcohol Use History: None Reported - Past Family History Mother Family Medical History: Cancer Additional Family Medical History / Comment(s): breast Sister(s) Family Medical History: Cancer, Deep Vein Thrombosis (DVT) Additional Family Medical History / Comment(s): breast ca Brother(s) Family Medical History: Cancer Additional Family Medical History / Comment(s): colon General Exam Limitations: no limitations General appearance: alert, in no apparent distress Head exam: Present: normocephalic Eye exam: Present: normal appearance ENT exam: Present: normal oropharynx Neck exam: Present: normal inspection Respiratory exam: Present: normal lung sounds bilaterally Cardiovascular Exam: Present: regular rate, normal rhythm GI/Abdominal exam: Present: soft, normal bowel sounds. Absent: distended, tenderness, guarding, rebound, rigid, pulsatile mass Extremities exam: Present: normal inspection Neurological exam: Present: alert Psychiatric exam: Present: normal affect, normal mood Skin exam: Present: normal color Course Vital Signs 02/22/24 16:04 Temperature 97.4 F L Pulse Rate 101 H Respiratory 17 Rate Blood Pressure 207/119 O2 Sat by Pulse 95 Oximetry EKG Findings - EKG Results: EKG: interpreted by ERMD (Septal Q waves), sinus rhythm, normal axis, normal ST/T Medical Decision Making - Medical Decision Making MDM back was pt. sent in by a medical professional or institution (TEA Vinson, CLOTH NAPPING SUPERVISOR, urgent care, hospital, or usp...) When possible be specific @ -No Did you speak to anyone other than the patient for history (EMS, parent, family, police, friend...)? What history was obtained from this source @ -No Did you review nursing and triage notes (agree or disagree)? Why? @ -I reviewed and agree with nursing and triage notes Were old charts reviewed (outside hosp., previous admission, EMS record, old EKG, old radiological studies, urgent care reports/EKG's, usp records)? Report findings @ -No old charts were reviewed Differential Diagnosis (chest pain, altered mental status, abdominal pain women, abdominal pain men, vaginal bleeding, weakness, fever, dyspnea, syncope, headache, dizziness, GI bleed, back pain, seizure, CVA, palpatations, mental health, musculoskeletal)? @ -Differential Abdominal Pain Women: Appendicitis, Cholecystitis, diverticulosis, ischemic bowel, pancreatitis, hepatitis, UTI, gastroenteritis, AAA, incarcerated hernia, bowel obstruction, constipation, inflammatory bowel, hepatitis, peptic ulcer disease, splenic infarction, perforated viscus, vulvitis, ovarian torsion, PID, kidney stone, placenta abruption, this is not meant to be an all-inclusive list EKG interpreted by me (3pts min.). @ -As above X-rays interpreted by me (1pt min.). @ -None done CT interpreted by me (1pt min.). @ -None done U/S interpreted by me (1pt. min.). @ -None done What testing was considered but not performed or refused? (CT, X-rays, U/S, labs)? Why? @ -Considered abdominal imaging however patient had no abdominal discomfort on exam. On repeat evaluation patient still has no abdominal discomfort and does not feel it is necessary and would like to be discharged What meds were considered but not given or refused? Why? @ -None Did you discuss the management of the patient with other professionals (professionals i.e. TEA Vinson, CLOTH NAPPING SUPERVISOR, lab, RT, psych nurse, social service coordinator, skein yarn drier, teacher, commanding officer traffic division, housing case manager)? Give summary @ -No Was smoking cessation discussed for >3mins.? @ -No Was critical care preformed (if so, how long)? @ -No Were there social determinants of health that impacted care today? How? (Homelessness, low income, unemployed, alcoholism, drug addiction, transportation, low edu. Level, literacy, decrease access to med. care, retirement, rehab)? @ -No Was there de-escalation of care discussed even if they declined (Discuss DNR or withdrawal of care, Hospice)? DNR status @ -No What co-morbidities impacted this encounter? (DM, HTN, Smoking, COPD, CAD, Canc er, CVA, ARF, Chemo, Hep., AIDS, mental health diagnosis, sleep apnea, morbid obesity)? @ -None Was patient admitted / discharged? Hospital course, mention meds given and route, prescriptions, significant lab abnormalities, going to OR and other pertinent info. @ -Patient presents with nausea and vomiting. Symptoms improved. Patient given medication and fluids. Workup unremarkable except for leukocytosis which could be attributed to emesis. Patient still has no abdominal discomfort on reevaluation and does not feel CT scan is necessary. Patient recommended close follow-up and return if symptoms worsen Undiagnosed new problem with uncertain prognosis? @ -No Drug Therapy requiring intensive monitoring for toxicity (Heparin, Nitro, Insulin, Cardizem)? @ -No Were any procedures done? @ -No Diagnosis/symptom? @ -Vomiting Acute, or Chronic, or Acute on Chronic? @ -Acute Uncomplicated (without systemic symptoms) or Complicated (systemic symptoms)? @ -Default Side effects of treatment? @ -No Exacerbation, Progression, or Severe Exacerbation? @ -No Poses a threat to life or bodily function? How? (Chest pain, USA, NC, pneumonia, PE, COPD, DKA, ARF, appy, cholecystitis, CVA, Diverticulitis, Homicidal, Suicidal, threat to staff... and all critical care pts) @ -No - Lab Data Result diagrams: 02/22/24 16:50 02/22/24 16:50 Lab Results 02/22/24 02/22/24 Range/Units 16:50 16:50 WBC 17.1 H (3.8-10.6) k/uL RBC 4.20 (3.80-5.40) m/uL Hgb 12.5 (11.4-16.0) gm/dL Hct 39.1 (34.0-46.0) % MCV 93.3 (80.0-100.0) fL MCH 29.7 (25.0-35.0) pg MCHC 31.9 (31.0-37.0) g/dL RDW 14.4 (11.5-15.5) % Plt Count 555 H (150-450) k/uL MPV 8.9 Neutrophils % 85 % Lymphocytes % 8 % Monocytes % 4 % Eosinophils % 1 % Basophils % 0 % Neutrophils # 14.5 H (1.3-7.7) k/uL Lymphocytes # 1.4 (1.0-4.8) k/uL Monocytes # 0.7 (0-1.0) k/uL Eosinophils # 0.2 (0-0.7) k/uL Basophils # 0.1 (0-0.2) k/uL Sodium 133 L (137-145) mmol/L Potassium 4.0 (3.5-5.1) mmol/L Chloride 101 (98-107) mmol/L Carbon Dioxide 21 L (22-30) mmol/L Anion Gap 11 mmol/L BUN 14 (7-17) mg/dL Creatinine 0.47 L (0.52-1.04) mg/dL Est GFR (CKD-EPI)AfAm >90 (>60 ml/min/1.73 sqM) Est GFR (CKD-EPI)NonAf >90 (>60 ml/min/1.73 sqM) Glucose 174 H (74-99) mg/dL Calcium 9.2 (8.4-10.2) mg/dL Total Bilirubin 0.8 (0.2-1.3) mg/dL AST 35 (14-36) U/L ALT 22 (4-34) U/L Alkaline Phosphatase 68 (38-126) U/L Total Protein 6.9 (6.3-8.2) g/dL Albumin 4.1 (3.5-5.0) g/dL Amylase 70 (30-110) U/L Lipase 97 (23-300) U/L Disposition Clinical Impression: Vomiting Disposition: HOME SELF-CARE Condition: Stable Instructions (If sedation given, give patient instructions): Acute Nausea and Vomiting (ED) Additional Instructions: Please do follow-up with your primary care physician beginning of the week. Ret urn for abdominal pain, fever, uncontrolled vomiting, worsening or changing symptoms or any other concerns. Is patient prescribed a controlled substance at d/c from ED?: No Referrals: Dony Bravo DO [Primary Care Provider] - 1-2 days Time of Disposition: 18:22
[2024-02-22 16:35] VITALS: RESP 17; TEMP 97.4
[2024-02-22] MEDS: SODIUM CHLORIDE 0.9% 1,000 ML IV STA (16:39)
[2024-02-22] MEDS: METOCLOPRAMIDE 5 MG/ML 2 ML VIAL IVP STA (16:39)
[2024-02-22] MEDS: FAMOTIDINE 20 MG/2 ML VIAL IV STA (16:39)
[2024-02-22 17:03] LABS: Basophils # (A) 0.1 k/uL (0-0.2); Basophils % (A) 0 %; Eosinophils # (A) 0.2 k/uL (0-0.7); Eosinophils % (A) 1 %; HCT 39.1 % (34.0-46.0); HGB 12.5 gm/dL (11.4-16.0); Lymphocytes # (A) 1.4 k/uL (1.0-4.8); Lymphocytes % (A) 8 %; MCH 29.7 pg (25.0-35.0); MCHC 31.9 g/dL (31.0-37.0); MCV 93.3 fL (80.0-100.0); Mean Platelet Volume 8.9; Monocytes # (A) 0.7 k/uL (0-1.0); Monocytes % (A) 4 %; Neutrophils # (A) 14.5 k/uL (1.3-7.7); Neutrophils % (A) 85 %; Platelet Count 555 k/uL (150-450); RDW 14.4 % (11.5-15.5); WBC 17.1 k/uL (3.8-10.6)
[2024-02-22 17:44] LABS: ALT 22 U/L (4-34); African American GFR (CKD) >90 (>60 ml/min/1.73 sqM); Albumin 4.1 g/dL (3.5-5.0); Amylase 70 U/L (30-110); Anion Gap 11 mmol/L; Blood Urea Nitrogen 14 mg/dL (7-17); Calcium 9.2 mg/dL (8.4-10.2); Carbon Dioxide 21 mmol/L (22-30); Chloride 101 mmol/L (98-107); Glucose 174 mg/dL (74-99); Lipase 97 U/L (23-300); Non-African American GFR(CKD) >90 (>60 ml/min/1.73 sqM); Sodium 133 mmol/L (137-145); Total Bilirubin 0.8 mg/dL (0.2-1.3); Total Protein 6.9 g/dL (6.3-8.2)
[2024-02-22 17:52] LABS: AST 35 U/L (14-36); Alkaline Phosphatase 68 U/L (38-126)
[2024-02-22 18:44] VITALS: BP 137/71; PULSE 76
[2024-02-22] MEDS: ONDANSETRON 4 MG ODT STARTER PACK 2 TAB BTL PO STA (18:53)
== END 2024-02-22 18:52 | disposition home or self-care (01) ==
LOC: EC 16:03
DX: R11.2 Nausea with vomiting, unspecified (principal); Z88.1 Allergy status to other antibiotic agents; Z88.2 Allergy status to sulfonamides
CPT/HCPCS: 36415; 93005; 80053; 82150; 83690; 85025; 99284; 96374; 96375; 96361; J2765; J3490

== ENCOUNTER → 2024-02-26 | Outpatient (CLI) | payer MEDICARE ==
--- NOTE | 2024-02-26 12:34 | XR ---
EXAMINATION TYPE: XR abdomen 2V DATE OF EXAM: 02/26/2024 12:13 PM COMPARISON: None. CLINICAL INDICATION: Female, 83 years old with history of R112 NAUSEA W VOMITING, TECHNIQUE: XR abdomen 2V view(s) obtained. FINDINGS: There is a normal bowel gas pattern. Moderate fecal debris is present Psoas margins are normal. No organomegaly is present. Calcifications are inferior pole left kidney. The largest measures 0.5 cm. Punctate calcifications ov erlying the right shadow. Ureteral stones are not identified Iliac stents are noted. IMPRESSION: 1. 0.5 cm left renal stones. Punctate renal stones may be present on the right. 2. Moderate fecal retention. [facility], , 02/26/2024 12:32 PM
== END | disposition home or self-care (01) ==
LOC: RADXRYALE 11:55
PROVIDERS: ATTEND Family Medicine
DX: N20.0 Calculus of kidney (principal); R11.2 Nausea with vomiting, unspecified
CPT/HCPCS: 74019

== ENCOUNTER 2024-03-02 18:00 | Observation (INO) | payer MEDICARE ==
--- NOTE | 2024-03-02 18:33 | ED ---
General Adult HPI - General Chief complaint: Recheck/Abnormal Lab/Rx Stated complaint: high blood pressure Time Seen by Provider: 03/02/24 18:08 Source: patient Mode of arrival: wheelchair Limitations: no limitations - History of Present Illness Initial comments: This is an 83-year-old female past medical history of hypertension presenting today for high blood pressure. Patient states that she was sitting at home at around and "did not feel right". She took her blood pressure which was 190 systolic. She went over to her neighbor's house who took her blood pressure 4 times and ultimately resulted in a systolic blood pressure of 217 prompting genna ent's visit to the emergency department. The patient denies any dizziness, headaches, changes in vision, shortness of breath, numbness, weakness, chest pain, cough, lower extremity swelling, abdominal pain, nausea, vomiting, decreased urine output. She took her 25 mg of hydrochlorothiazide this morning and she typically takes 100 mg of losartan each evening at 6:00 however took it about 1 hour prior to arrival. - Related Data Home Medications Medication Instructions Recorded Confirmed Fish Oil/Dha/Epa [Fish Oil 1,200 1 cap PO DAILY 01/02/14 03/02/24 mg Fish Oil] Gluc HCl/Andrew/Mv/Min Aa/Hb 162 1 tab PO DAILY 01/02/14 03/02/24 [Glucosamine-Chondroitin Caplet] Omeprazole [PriLOSEC] 20 mg PO DAILY 01/02/14 03/02/24 Cinnamon Bark [Cinnamon] 1,000 mg PO DAILY 09/09/14 03/02/24 L.acidoph,Paracasei, B.lactis 1 cap PO DAILY 01/11/22 03/02/24 [Probiotic] Multivit-Min/FA/Lycopen/Lutein 1 tab PO DAILY 01/11/22 03/02/24 [Centrum Silver Tablet] Ascorbic Acid [Vitamin C] 1,000 mg PO DAILY 02/22/24 03/02/24 Atorvastatin [Lipitor] 80 mg PO HS 02/22/24 03/02/24 Calcium Carbonate/Vitamin D3 1 tab PO DAILY 02/22/24 03/02/24 [Calcium 600 mg-Vit D3 10 mcg (400 Unit)] Losartan Potassium [Cozaar] 100 mg PO DAILY 02/22/24 03/02/24 Montelukast Sodium 10 mg PO DAILY 02/22/24 03/02/24 Ubidecarenone [Coenzyme Q10] 200 mg PO DAILY 02/22/24 03/02/24 hydroCHLOROthiazide [Hydrodiuril] 25 mg PO DAILY 02/22/24 03/02/24 metFORMIN HCL [Glucophage] 500 mg PO BID 02/22/24 03/02/24 Aspirin 325 mg PO W/SUPPER 03/02/24 03/02/24 Allergies Allergy/AdvReac Type Severity Reaction Status Date / Time sulfamethoxazole Allergy Anaphylaxis Verified 03/02/24 19:32 [From Bactrim] trimethoprim [From Bactrim] Allergy Anaphylaxis Verified 03/02/24 19:32 Review of Systems ROS Statement: Those systems with pertinent positive or pertinent negative responses have been documented in the HPI. ROS Other: All systems not noted in ROS Statement are negative. Past Medical History Past Medical History: Coronary Artery Disease (CAD), Cancer, Hyperlipidemia, Hypertension Additional Past Medical History / Comment(s): Breast - 1988. OSTEOPOROSIS. History of Any Multi-Drug Resistant Organisms: None Reported Past Surgical History: Breast Surgery, Hysterectomy, Orthopedic Surgery Additional Past Surgical History / Comment(s): left breast mastectomy, left leg stent, ankle/foot sx Past Anesthesia/Blood Transfusion Reactions: No Reported Reaction Past Psychological History: No Psychological Hx Reported Smoking Status: Never smoker Past Alcohol Use History: None Reported - Past Family History Mother Family Medical History: Cancer Additional Family Medical History / Comment(s): breast Sister(s) Family Medical History: Cancer, Deep Vein Thrombosis (DVT) Additional Family Medical History / Comment(s): breast ca Brother(s) Family Medical History: Cancer Additional Family Medical History / Comment(s): colon General Exam - General Exam Comments Initial Comments: PE: CONSTITUTIONAL: No apparent distress, well appearing SKIN: Warm, dry, no jaundice, hives or petechiae EYES: Pupils are equally round, extraocular movements intact without nystagmus, clear conjunctiva, non-icteric sclera HENT: Normocephalic, atraumatic, moist mucus membranes, oropharynx clear without exudates NECK: , Full range of motion, normal appearance PULMONARY: Clear to auscultation without wheezes, rhonchi, or rales, normal excursion, no accessory muscle use and no stridor CARDIOVASCULAR: Regular rate, rhythm, normal S1 and S2. No appreciated murmurs, rubs or gallops. Strong radial pulses with intact distal perfusion. No lower extremity edema GASTROINTESTINAL: Soft, active bowel sounds throughout, non-tender, non- distended, no palpable masses, no rebound or guarding. No hepatosplenomegaly MUSCULOSKELETAL: Extremities have no gross deformity, no edema, redness, or swelling. No calf swelling NEUROLOGIC:_a/o x 3, GCS 15, normal mentation and speech. Moves all extremities x 4 without motor or sensory deficit PSYCHIATRIC: Mildly anxious mood and affect, thought process is clear and linear Limitations: no limitations Course Vital Signs 03/02/24 03/02/24 03/02/24 18:02 18:19 19:12 Temperature 98.3 F Pulse Rate 78 68 Respiratory 18 16 18 Rate Blood Pressure 207/102 196/91 170/76 O2 Sat by Pulse 94 L 94 L Oximetry 03/02/24 03/03/24 20:52 00:00 Temperature Pulse Rate 67 68 Respiratory 18 16 Rate Blood Pressure 187/88 150/75 O2 Sat by Pulse 95 95 Oximetry EKG Findings - EKG Comments: EKG Findings:: Sinus rhythm, rate 67 bpm, WI interval 187 ms, QRS duration 87 ms, QT/QTc 368/3 4 ms, normal axis, no ST elevations or depressions,Compared to EKG performed on 02/22/2024, Q-wave noted in V1-V2 present on this EKG as well, no significant changes from prior Medical Decision Making - Medical Decision Making Was pt. sent in by a medical professional or institution (, PA, UX VISUAL DESIGNER, urgent care, hospital, or fpc...) When possible be specific @ -No Did you speak to anyone other than the patient for history (EMS, parent, family, police, friend...)? What history was obtained from this source @ -No Did you review nursing and triage notes (agree or disagree)? Why? @ -I reviewed and agree with nursing and triage notes-patient provided in same history to me that she provided to director of retention Were old charts reviewed (outside hosp., previous admission, EMS record, old EKG, old radiological studies, urgent care reports/EKG's, fpc records)? Report findings @ -Medical records reviewed, patient here 02/22/2024 for nausea vomiting at that time her blood pressure was 207 systolic Differential Diagnosis (chest pain, altered mental status, abdominal pain women, abdominal pain men, vaginal bleeding, weakness, fever, dyspnea, syncope, headache, dizziness, GI bleed, back pain, seizure, CVA, palpatations, mental health, musculoskeletal)? @Differential diagnosis remains broad over top considerations include hypertensive urgency, hypertensive emergency, home monitor malfunction, this is not all inclusive list EKG interpreted by me (3pts min.). @ -As above X-rays interpreted by me (1pt min.). @ Bilateral lower lobe consolidations CT interpreted by me (1pt min.). @ -None done U/S interpreted by me (1pt. min.). @ -None done What testing was considered but not performed or refused? (CT, X-rays, U/S, labs)? Why? @ -None What meds were considered but not given or refused? Why? @ -Considered IV labetalol however patient asymptomatic and no signs of endorgan damage therefore additional dose of patient's home oral medication was used Did you discuss the management of the patient with other professionals (professionals i.e. , PA, UX VISUAL DESIGNER, lab, RT, psych nurse, geriatric social work professor, athletics director, teacher, workplace rehabilitation officer, case filler)? Give summary @ -No Was smoking cessation discussed for >3mins.? @ -No Was critical care preformed (if so, how long)? @Yes, 35 minutes Were there social determinants of health that impacted care today? How? (Homelessness, low income, unemployed, alcoholism, drug addiction, transportation, low edu. Level, literacy, decrease access to med. care, retirement, rehab)? @ -No Was there de-escalation of care discussed even if they declined (Discuss DNR or withdrawal of care, Hospice)? @ -No What co-morbidities impacted this encounter? (DM, HTN, Smoking, COPD, CAD, Cancer, CVA, ARF, Chemo, Hep., AIDS, mental health diagnosis, sleep apnea, morbid obesity)? @Hypertension Was patient admitted / discharged? Hospital course, mention meds given and route, prescriptions, significant lab abnormalities, going to OR and other pertinent info. @Admission- This is a pleasant 83-year-old female presenting for hypertension. [place] funny this afternoon with a systolic blood pressure 190 that ultimately increased to 217 after multiple rechecks. On assessment patient well-appearing in no acute distress, suspect blood pressure 207/109, repeat check at bedside without in tervention 195 systolic. Patient denies any associated symptoms, she has no lower extremity CALIN, lungs clear to auscultation bilaterally, no focal neurologic deficits. Will check basic labs, EKG and chest x-ray to assess for signs of endorgan damage, will give additional dose of patient's home hyd rochlorothiazide, anticipate discharge. Patient agreeable with plan. Repeat blood pressure 170/95. XR read by radiologist as no acute process, did appear to have bilateral LL consolidations to myself however patient has no fever or respiratory symptoms or ROBINSON so no further treatment indicated at this point. Mag 1.1, ordered replacement. Ordered both IV and oral replacement however I do not think this will be sufficient to bring patient's any symptoms to a normal level while in the ED so will admit for observation. Discussed this with patient she is agreeable with plan. Case discussed with richa Quick, With patient for admission. Home medications ordered, magnesium replacement protocol orders placed. Undiagnosed new problem with uncertain prognosis? @ -No Drug Therapy requiring intensive monitoring for toxicity (Heparin, Nitro, Insulin, Cardizem)? @ -No Were any procedures done? @ -No Diagnosis/symptom? @ Hypertensive urgency, hypomagnesemia Acute, or Chronic, or Acute on Chronic? @ acute Uncomplicated (without systemic symptoms) or Complicated (systemic symptoms)? uncomplicated Side effects of treatment? @ -No Exacerbation, Progression, or Severe Exacerbation? @ -No Poses a threat to life or bodily function? How? (Chest pain, USA, IA, pneumonia, PE, COPD, DKA, ARF, appy, cholecystitis, CVA, Diverticulitis, Homicidal, Suicidal, threat to staff... and all critical care pts) @ -Yes, if allowed to continue untreated could result in leth arrythmia and , additionally uncontrolled hypertension could result in end organ damage - Lab Data Result diagrams: 03/02/24 19:29 03/02/24 19:29 Lab Results 03/02/24 03/02/24 03/02/24 Range/Units 19:29 19:29 19:29 WBC 9.1 (3.8-10.6) k/uL RBC 4.11 (3.80-5.40) m/uL Hgb 12.5 (11.4-16.0) gm/dL Hct 38.0 (34.0-46.0) % MCV 92.4 (80.0-100.0) fL MCH 30.5 (25.0-35.0) pg MCHC 33.0 (31.0-37.0) g/dL RDW 14.3 (11.5-15.5) % Plt Count 575 H (150-450) k/uL MPV 8.6 Neutrophils % 70 % Lymphocytes % 21 % Monocytes % 6 % Eosinophils % 2 % Basophils % 0 % Neutrophils # 6.4 (1.3-7.7) k/uL Lymphocytes # 1.9 (1.0-4.8) k/uL Monocytes # 0.5 (0-1.0) k/uL Eosinophils # 0.2 (0-0.7) k/uL Basophils # 0.0 (0-0.2) k/uL PT 10.5 (10.0-12.5) sec INR 0.9 (<1.2) APTT 24.0 (22.0-30.0) sec Sodium (137-145) mmol/L Potassium (3.5-5.1) mmol/L Chloride (98-107) mmol/L Carbon Dioxide (22-30) mmol/L Anion Gap mmol/L BUN (7-17) mg/dL Creatinine (0.52-1.04) mg/dL Est GFR (CKD-EPI)AfAm (>60 ml/min/1.73 sqM) Est GFR (CKD-EPI)NonAf (>60 ml/min/1.73 sqM) Glucose (74-99) mg/dL Calcium (8.4-10.2) mg/dL Magnesium (1.6-2.3) mg/dL Total Bilirubin (0.2-1.3) mg/dL AST (14-36) U/L ALT (4-34) U/L Alkaline Phosphatase (38-126) U/L Troponin I (0.000-0.034) ng/mL NT-Pro-B Natriuret Pep pg/mL Total Protein (6.3-8.2) g/dL Albumin (3.5-5.0) g/dL Urine Color Colorless Urine Appearance Clear (Clear) Urine pH 7.0 (5.0-8.0) Ur Specific Norris 1.004 (1.001-1.035) Urine Protein Negative (Negative) Urine Glucose (UA) Negative (Negative) Urine Ketones Negative (Negative) Urine Blood Negative (Negative) Urine Nitrite Negative (Negative) Urine Bilirubin Negative (Negative) Urine Urobilinogen <2.0 (<2.0) mg/dL Ur Leukocyte Esterase Negative (Negative) 03/02/24 03/02/24 Range/Units 19:29 19:29 WBC (3.8-10.6) k/uL RBC (3.80-5.40) m/uL Hgb (11.4-16.0) gm/dL Hct (34.0-46.0) % MCV (80.0-100.0) fL MCH (25.0-35.0) pg MCHC (31.0-37.0) g/dL RDW (11.5-15.5) % Plt Count (150-450) k/uL MPV Neutrophils % % Lymphocytes % % Monocytes % % Eosinophils % % Basophils % % Neutrophils # (1.3-7.7) k/uL Lymphocytes # (1.0-4.8) k/uL Monocytes # (0-1.0) k/uL Eosinophils # (0-0.7) k/uL Basophils # (0-0.2) k/uL PT (10.0-12.5) sec INR (<1.2) APTT (22.0-30.0) sec Sodium 131 L (137-145) mmol/L Potassium 4.4 (3.5-5.1) mmol/L Chloride 98 (98-107) mmol/L Carbon Dioxide 25 (22-30) mmol/L Anion Gap 8 mmol/L BUN 13 (7-17) mg/dL Creatinine 0.51 L (0.52-1.04) mg/dL Est GFR (CKD-EPI)AfAm >90 (>60 ml/min/1.73 sqM) Est GFR (CKD-EPI)NonAf 89 (>60 ml/min/1.73 sqM) Glucose 114 H (74-99) mg/dL Calcium 9.4 (8.4-10.2) mg/dL Magnesium 1.1 L (1.6-2.3) mg/dL Total Bilirubin 1.0 (0.2-1.3) mg/dL AST 35 (14-36) U/L ALT 24 (4-34) U/L Alkaline Phosphatase 79 (38-126) U/L Troponin I <0.012 (0.000-0.034) ng/mL NT-Pro-B Natriuret Pep 131 pg/mL Total Protein 7.3 (6.3-8.2) g/dL Albumin 4.5 (3.5-5.0) g/dL Urine Color Urine Appearance (Clear) Urine pH (5.0-8.0) Ur Specific Norris (1.001-1.035) Urine Protein (Negative) Urine Glucose (UA) (Negative) Urine Ketones (Negative) Urine Blood (Negative) Urine Nitrite (Negative) Urine Bilirubin (Negative) Urine Urobilinogen (<2.0) mg/dL Ur Leukocyte Esterase (Negative) Disposition Clinical Impression: Hypomagnesemia Disposition: ADMITTED IP TO THIS HOSP Condition: Good
[2024-03-02] MEDS: hydroCHLOROthiazide 25 MG TAB PO STA (19:13)
[2024-03-02 19:44] LABS: Basophils % (A) 0 %; Eosinophils # (A) 0.2 k/uL (0-0.7); Eosinophils % (A) 2 %; HGB 12.5 gm/dL (11.4-16.0); Lymphocytes # (A) 1.9 k/uL (1.0-4.8); Lymphocytes % (A) 21 %; MCH 30.5 pg (25.0-35.0); MCV 92.4 fL (80.0-100.0); Mean Platelet Volume 8.6; Monocytes # (A) 0.5 k/uL (0-1.0); Monocytes % (A) 6 %; Neutrophils # (A) 6.4 k/uL (1.3-7.7); Neutrophils % (A) 70 %; Platelet Count 575 k/uL (150-450); RBC 4.11 m/uL (3.80-5.40); RDW 14.3 % (11.5-15.5); WBC 9.1 k/uL (3.8-10.6)
[2024-03-02 19:53] LABS: INR 0.9 (<1.2); Prothrombin Time 10.5 sec (10.0-12.5)
[2024-03-02 20:03] LABS: ALT 24 U/L (4-34); AST 35 U/L (14-36); African American GFR (CKD) >90 (>60 ml/min/1.73 sqM); Albumin 4.5 g/dL (3.5-5.0); Alkaline Phosphatase 79 U/L (38-126); Anion Gap 8 mmol/L; Blood Urea Nitrogen 13 mg/dL (7-17); Calcium 9.4 mg/dL (8.4-10.2); Carbon Dioxide 25 mmol/L (22-30); Chloride 98 mmol/L (98-107); Glucose 114 mg/dL (74-99); Magnesium 1.1 mg/dL (1.6-2.3); Non-African American GFR(CKD) 89 (>60 ml/min/1.73 sqM); Potassium 4.4 mmol/L (3.5-5.1); Sodium 131 mmol/L (137-145); Total Protein 7.3 g/dL (6.3-8.2)
[2024-03-02 20:11] LABS: NT-Pro-B-Type Natriuretic Pept 131 pg/mL
--- NOTE | 2024-03-02 20:29 | XR ---
EXAMINATION TYPE: XR chest 2V DATE OF EXAM: 03/02/2024 7:54 PM COMPARISON: Chest radiographs from02/23/2020 CLINICAL INDICATION: Female, 83 years old with history of Chest Pain; TECHNIQUE: XR chest 2V Frontal and lateral views of the chest. FINDINGS: Lungs/Pleura: Prominent interstitial lung markings are seen scattered throughout the lungs. No eviden ce of focal consolidation, pneumothorax or pleural effusion. Pulmonary vascularity: Unremarkable. Heart/mediastinum: Cardiomediastinal silhouette is enlarged and stable. Atherosclerotic calcificatio ns are seen in the aorta. Musculoskeletal: No acute osseous pathology. Other findings: None Lines/Tubes: IMPRESSION: 1. No acute cardiopulmonary disease process. 2. COPD changes. [facility], , 03/02/2024 8:26 PM
[2024-03-02] MEDS ORDERED: traMADol 50 MG TAB PO PRN (20:31)
[2024-03-02] MEDS ORDERED: MAG HYDROX/AL HYDROX/SIMETH 30 ML CUP PO PRN (20:31)
[2024-03-02] MEDS ORDERED: ACETAMINOPHEN TAB 325 MG TAB PO PRN (20:31)
[2024-03-02] MEDS ORDERED: ALPRAZolam 0.25 MG TAB PO PRN (20:31)
[2024-03-02] MEDS ORDERED: NALOXONE 0.4 MG/ML 1 ML VIAL IV PRN (20:31)
[2024-03-02] MEDS ORDERED: Magnesium Replacement Protocol 1 EACH MISC MISCELLANE PRN (20:33)
[2024-03-02] MEDS: SODIUM CHLORIDE 0.9% 1,000 ML IV SCH (20:44)
[2024-03-02] MEDS: MAGNESIUM SULFATE-D5W PMX 1 GM in DEXTROSE/WATER 1 100ML.BAG IVPB SCH (20:44)
[2024-03-02] MEDS: MAGNESIUM OXIDE 400 MG TAB PO STA (20:47)
[2024-03-02] MEDS: ATORVASTATIN 80 MG TAB PO SCH (20:47)
[2024-03-02] MEDS: ASPIRIN 325 MG TAB PO SCH (20:47)
[2024-03-03 00:05] LABS: Appearance,Urine Clear (Clear); Bilirubin,Urine Negative (Negative); Blood,Urine Negative (Negative); Color,Urine Colorless; Glucose,Urine (UA) Negative (Negative); Ketones,Urine Negative (Negative); Leukocyte Esterase,Urine Negative (Negative); Nitrite,Urine Negative (Negative); Protein,Urine Negative (Negative); Specific Gravity,Urine 1.004 (1.001-1.035); Urobilinogen,Urine <2.0 mg/dL (<2.0)
--- NOTE | 2024-03-03 00:32 | P.HPIM ---
History of Present Illness H&P Date: 03/02/24 Chief Complaint: "I thought I was feeling off" and "my blood pressure was 217" Denise is a 83-year-old woman with a history of hypertension. She reports starting to experience high blood pressure approximately 2 months ago when she was on two medications for hypertension. Due to concerns about side effects, she discussed with her doctor the possibility of reducing her medication, which was done around a couple of months ago. Denise felt well afterward and did not check her b lood pressure until today when her family members were checking theirs. She decided to check her own blood pressure and found it was extremely high at 217. She denies any associated symptoms such as headache, chest pain, trouble breathing, or neurological symptoms like weakness or numbness. Denise also expressed feeling "off" but could not specify what that felt like; she described the sensation as tired or foggy. She does not report any other significant symptoms or health issues at this time. Denise was concerned enough about the high reading to seek medical attention today. Denise lives with her daughter and stepdaughter and manages all activities of daily living independently. There is no mention of tobacco or alcohol use. ROS Constitutional - denies any fevers or chills. Neurological - denies weakness, numbness, or seizures. Cardiovascular - denies chest pain or palpitations but has high blood pressure. Respiratory - denies trouble breathing or cough. GI - denies abdominal pain, nausea, vomiting, or diarrhea. Musculoskeletal - mentions back trouble but no other joint pain. Endocrine - denies symptoms suggestive of diabetes or thyroid disease. on exam Constitutional: No acute distress, conversant, pleasant Eyes: Anicteric sclerae, moist conjunctiva, Pupils equal round reactive to light ENMT: NC/AT Oropharynx clear, no erythema, or exudates Neck: Supple, no masses, or JVD No carotid bruits No thyromegaly Lungs: Clear to auscultation Clear to percussion Normal respiratory effort, no accessory muscle use Cardiovascular: Heart regular in rate and rhythm, No murmurs, gallops, or rubs No peripheral edema Abdominal: Soft Nontender, no guarding, rebound or rigidity Abdomen moving with respiration Normoactive bowel sounds Extremities: No digital cyanosis No clubbing Pedal pulses intact and symmetrical Radial pulses intact and symmetrical No calf tenderness Psychiatric: Alert and oriented to person, place and time Appropriate affect fair judgement Neuro Muscles Strength 5/5 in all 4 extremities Sensation to light touch grossly present throughout Cranial nerves II-XII grossly intact assessment and plan Denise presents today primarily with elevated blood pressure. i discussed the case with ED doc and I accepted the admission under observation for blood pressure management with anticipated length of stay < 2 midnights poorly managed hypertension, considering her recent increase in blood pressure readings. Plan includes monitoring and adjusting her antihypertensive med ications to improve blood pressure control, Hypomagnesemia replace IV and follow up levels . Will continue to monitor for any other symptoms pertaining to hypertension and provide lifestyle guidance as well. Mg 1.1 Mild hyponatremia Sodium 131 Fluid hydration normal saline 75 cc/h Follow-up sodium level in the morning Blood work unremarkable White count 9.1 hemoglobin 12.5 BUN 13 creatinine 0.5 potassium 4.4 full code DVT PPX heparin sc tid 5000 units Past Medical History Past Medical History: Coronary Artery Disease (CAD), Cancer, Hyperlipidemia, Hypertension Additional Past Medical History / Comment(s): Breast - 1987. OSTEOPOROSIS. History of Any Multi-Drug Resistant Organisms: None Reported Past Surgical History: Breast Surgery, Hysterectomy, Orthopedic Surgery Additional Past Surgical History / Comment(s): left breast mastectomy, left leg stent, ankle/foot sx Past Anesthesia/Blood Transfusion Reactions: No Reported Reaction Past Psychological History: No Psychological Hx Reported Smoking Status: Never smoker Past Alcohol Use History: None Reported - Past Family History Mother Family Medical History: Cancer Additional Family Medical History / Comment(s): breast Sister(s) Family Medical History: Cancer, Deep Vein Thrombosis (DVT) Additional Family Medical History / Comment(s): breast ca Brother(s) Family Medical History: Cancer Additional Family Medical History / Comment(s): colon Medications and Allergies Home Medications Medication Instructions Recorded Confirmed Type Fish Oil/Dha/Epa [Fish Oil 1,200 1 cap PO DAILY 01/02/14 03/02/24 History mg Fish Oil] Gluc HCl/Andrew/Mv/Min Aa/Hb 162 1 tab PO DAILY 01/02/14 03/02/24 History [Glucosamine-Chondroitin Caplet] Omeprazole [PriLOSEC] 20 mg PO DAILY 01/02/14 03/02/24 History Cinnamon Bark [Cinnamon] 1,000 mg PO DAILY 09/09/14 03/02/24 History L.acidoph,Paracasei, B.lactis 1 cap PO DAILY 01/11/22 03/02/24 History [Probiotic] Multivit-Min/FA/Lycopen/Lutein 1 tab PO DAILY 01/11/22 03/02/24 History [Centrum Silver Tablet] Ascorbic Acid [Vitamin C] 1,000 mg PO DAILY 02/22/24 03/02/24 History Atorvastatin [Lipitor] 80 mg PO HS 02/22/24 03/02/24 History Calcium Carbonate/Vitamin D3 1 tab PO DAILY 02/22/24 03/02/24 History [Calcium 600 mg-Vit D3 10 mcg (400 Unit)] Losartan Potassium [Cozaar] 100 mg PO DAILY 02/22/24 03/02/24 History Montelukast Sodium 10 mg PO DAILY 02/22/24 03/02/24 History Ubidecarenone [Coenzyme Q10] 200 mg PO DAILY 02/22/24 03/02/24 History hydroCHLOROthiazide [Hydrodiuril] 25 mg PO DAILY 02/22/24 03/02/24 History metFORMIN HCL [Glucophage] 500 mg PO BID 02/22/24 03/02/24 History Aspirin 325 mg PO W/SUPPER 03/02/24 03/02/24 History Allergies Allergy/AdvReac Type Severity Reaction Status Date / Time sulfamethoxazole Allergy Anaphylaxis Verified 03/02/24 19:32 [From Bactrim] trimethoprim [From Bactrim] Allergy Anaphylaxis Verified 03/02/24 19:32 Physical Exam Vitals: Vital Signs Temp Pulse Resp BP Pulse Ox 03/02/24 20:52 67 18 187/88 95 03/02/24 19:12 68 18 170/76 94 L 03/02/24 18:19 16 196/91 03/02/24 18:02 98.3 F 78 18 207/102 94 L Intake and Output 03/02/24 03/02/24 03/03/24 14:59 22:59 06:59 Other: Weight 61.235 kg Results CBC & Chem 7: 03/02/24 19:29 03/02/24 19:29 Labs: Abnormal Lab Results - Last 24 Hours (Table) 03/02/24 03/02/24 Range/Units 19:29 19:29 Plt Count 575 H (150-450) k/uL Sodium 131 L (137-145) mmol/L Creatinine 0.51 L (0.52-1.04) mg/dL Glucose 114 H (74-99) mg/dL Magnesium 1.1 L (1.6-2.3) mg/dL
[2024-03-03] MEDS ORDERED: cloNIDine HCL 0.2 MG TAB PO PRN (00:35)
[2024-03-03] MEDS ORDERED: DEXTROSE 50% SYRINGE 50 ML IVP PRN ×2 (00:36)
[2024-03-03 00:51] LABS: Glucose,Whole Blood 116 mg/dL (70-110)
[2024-03-03 06:44] LABS: Glucose,Whole Blood 127 mg/dL (70-110)
[2024-03-03] MEDS: INSULIN ASPART (NovoLOG) 100 UNIT/ML VIAL SQ SCH (06:46)
[2024-03-03] MEDS: metFORMIN 500 MG TAB PO SCH (06:47)
[2024-03-03] MEDS: PANTOPRAZOLE 40 MG TABLET PO SCH (06:47)
[2024-03-03] MEDS: LACTOBACILLUS ACIDOPHILUS/PECT 1 EACH CAPSULE PO SCH (08:14)
[2024-03-03] MEDS: MONTELUKAST 10 MG TAB PO SCH (08:14)
[2024-03-03] MEDS: HEPARIN SODIUM,PORCINE 5,000 UNIT/ML 1 ML VIAL SQ SCH (08:14)
[2024-03-03] MEDS: CALCIUM CARB-VIT D 500 MG-5 MCG TAB PO SCH (08:14)
[2024-03-03] MEDS: ASCORBIC ACID 500 MG TAB PO SCH (08:14)
[2024-03-03 08:17] VITALS: RESP 18
[2024-03-03] MEDS: ENOXAPARIN 40 MG/0.4 ML SYRINGE SQ SCH (08:17)
[2024-03-03] MEDS: amLODIPine 5 MG TAB PO SCH (08:54)
[2024-03-03] MEDS ORDERED: hydroCHLOROthiazide 25 MG TAB PO SCH (09:00)
[2024-03-03 10:20] LABS: BUN/Creat Ratio 13.83 Ratio (12.00-20.00); Blood Urea Nitrogen 8.3 mg/dL (9.0-27.0); Calcium 9.1 mg/dL (8.7-10.3); Carbon Dioxide 24.5 mmol/L (21.6-31.8); Chloride 98 mmol/L (96-109); Glucose 121 mg/dL (70-110); Magnesium 1.8 mg/dL (1.5-2.4); Potassium 4.3 mmol/L (3.5-5.5); Sodium 135 mmol/L (135-145)
[2024-03-03 11:54] LABS: Glucose,Whole Blood 183 mg/dL (70-110)
[2024-03-03 14:22] VITALS: BP 145/68; PULSE 80; TEMP 97
--- NOTE | 2024-03-03 15:43 | P.DS ---
Providers Date of admission: 03/02/24 20:31 Expected date of discharge: 03/03/24 Attending physician: Cathy Pérez MD Primary care physician: Dony Bravo [facility] Course: Discharge Diagnosis: Hypertensive urgency. Patient reports history of poorly controlled blood pressures over the last year and presented to the hospital with hypertensive urgency with systolic pressure greater than 200s. Patient also found to have significant hypomagnesemia. Patient reports drinking coffee throughout the day but denies any intake of water. She denies history of heart failure or edema. Hydrochlorothiazide discontinued. Patient started on amlodipine 5 mg daily in addition to losartan 100 mg daily. (blood pressures much better controlled resulting at 140/84, 144/67, and 145/68). Patient instructed to take her blood pressure 2-3 times daily and document these findings in a daily log/chart that was provided to her and to bring these results with her to her follow up visit with PCP, Dr. Shannon to ensure additional changes can be made to current medication regimen if needed. Also discussed with patient to change positions slowly from lying to sitting, sitting before standing, and standing before walking to allow her body time to adjust to changes in her pressures. Hypomagnesemia. Replaced and resolved. Patient provided with a list of foods high in magnesium and diuretic was discontinued. Hyponatremia, likely secondary to mild dehydration resulting from only drinking caffeinated beveragesand daily diuretic use. Resolved with sodium 135 on discharge. Thrombocytosis.CBC showing thrombocytosis with platelet count of 575 (this appears to be chronic finding and stable dating back to 2021). Type II [id number] diabetes mellitus. Continue metformin 500 mg twice daily. Hyperlipidemia. Continue daily medication regimen with atorvastatin 80 mg nightly. Peripheral vascular disease status post stenting of left leg. Continue daily medication regimen with aspirin 325 mg daily and atorvastatin 80 mg nightly. History of breast cancer status post left mastectomy. Hospital Course: Patient is a very pleasant 83-year-old female with a past medical history of hy pertension, hyperlipidemia, peripheral vascular disease status post stenting of left leg, and breast cancer status post left mastectomy. She presented to the emergency department on 03/02/2024 with a chief complaint of "feeling off like I am foggy and sleepy" and having hypertension. Patient reported poorly controlled blood pressures off and on over the past year and states medication changes were made 2 months ago when she was started on hydrochlorothiazide in addition to her losartan. Patient denies having any other complaints at this time. She reports recent illness about a week ago with some mild nausea and vomiting, but states proximately once a week having episodes of feeling foggy and sleepy. She reports she drinks coffee throughout the day but admits to absolutely no water drinking. Patient states the only fluid she consumes is coffee. On arrival to our facility, patient underwent evaluation in the emergency department. Vital signs upon arrival show blood pressure 207/102, heart rate 78, respiratory rate 18, temp 98.3 F, and SpO2 of 94% on room air. EKG completed showing normal sinus rhythm at 67 bpm with no significant T wave or ST abnormality showing no signs of acute ischemia upon personal review and interpretation. Chest x-ray completed negative for acute cardiopulmonary process showing changes of COPD with prominent interstitial lung markings. Labs completed and reviewed. CBC showing thrombocytosis with platelet count of 575 (this appears to be chronic finding and stable dating back to 2021). BMP showing mild hyponatremia with sodium of 131 blood glucose of 114. Calcium was 9.4. Magnesium was low at 1.1. Liver profile unremarkable. Troponin was negative at less than 0.012 and proBNP was 131. Urinalysis negative for blood, protein, ketones, or infection. Patient admitted under our services. She received gentle IV fluid hydration, magnesium replacement, and changes were made to current antihypertensive medication regimen. Hydrochlorothiazide discontinued and patient started on amlodipine 5 mg daily in addition to losartan 100 mg daily. She remained on telemetry monitoring and blood pressures were trended showing much better control resulting at 140/84, 144/67, and 145/68. Patient is medically optimized and stable for discharge home with family at this time. Went to bedside and discussed discharge instructions with patient, patient's , and patient's daughter. Patient was instructed to check her blood pressure 2-3 times daily and document these findings in a daily log/chart that was provided to her and to bring these results with her to her follow up visit with PCP, Dr. Shannon to ensure additional changes can be made to current medication regimen if needed. Also discussed with patient to change positions slowly from lying to sitting, sitting before standing, and standing before walking to allow her body time to adjust to changes in her pressures. Patient discharged at this time and will need to follow-up outpatient with PCP in 1 to 2 days. Physical examination: Vital signs reviewed and stable. General: Nontoxic, no distress and appears stated age. Derm: Skin warm and dry, normal coloration for ethnicity. Head: Atraumatic, normocephalic and symmetric. Eyes: EOM's intact, no lid lag, and anicteric sclera Mouth: no lip lesions, mucus membranes moist Cardiovascular: regular rate and rhythm with normal S1S2, no murmur, positive posterior tibial pulses bilaterally, and cap refill < 2 seconds. Lungs: Respirations even, regular, and unlabored on room air. Lungs CTA bilaterally, no rhonchi, no rales, no wheezing, and no accessory muscle usage. Abdominal: soft, nontender to palpation, no guarding, no appreciable organomegal y Ext: ROM intact. No gross muscle atrophy, no edema, no contractures Neuro: Speech clear, face symmetrical and CN II-XII grossly intact with no noted focal neuro deficits Psych: Alert and oriented to person, place, time, and situation. Appropriate and pleasant affect. A total of 37 minutes of time were spent preparing this complex discharge summary. Pt was discharged on 03/03/2024 at 2:32 PM. Patient was seen independently by Nurse Practitioner. This document was prepared using [employer] dictation software. Please allow for errors in lathmaker while rare they do occur. Tyron Magallanes NP rendered care for this patient independently, reviewed the findings and plan as documented in the note above. I did not physically speak with or examine the patient on this date. . Patient Condition at Discharge: Stable Plan - Discharge Summary New Discharge Prescriptions: New amLODIPine [Norvasc] 5 mg PO DAILY 30 Days #30 tab Continue Omeprazole [PriLOSEC] 20 mg PO DAILY Gluc HCl/Andrew/Mv/Min Aa/Hb 162 [Glucosamine-Chondroitin Caplet] 1 tab PO DAILY Fish Oil/Dha/Epa [Fish Oil 1,200 mg Fish Oil] 1 cap PO DAILY Cinnamon Bark [Cinnamon] 1,000 mg PO DAILY L.acidoph,Paracasei, B.lactis [Probiotic] 1 cap PO DAILY Calcium Carbonate/Vitamin D3 [Calcium 600 mg-Vit D3 10 mcg (400 Unit)] 1 tab PO DAILY Ascorbic Acid [Vitamin C] 1,000 mg PO DAILY Atorvastatin [Lipitor] 80 mg PO HS Montelukast Sodium 10 mg PO DAILY Multivit-Min/FA/Lycopen/Lutein [Centrum Silver Tablet] 1 tab PO DAILY Ubidecarenone [Coenzyme Q10] 200 mg PO DAILY metFORMIN HCL [Glucophage] 500 mg PO BID Losartan Potassium [Cozaar] 100 mg PO DAILY Aspirin 325 mg PO W/SUPPER Discontinued hydroCHLOROthiazide [Hydrodiuril] 25 mg PO DAILY Discharge Medication List Fish Oil/Dha/Epa [Fish Oil 1,200 mg Fish Oil] 1 cap PO DAILY 01/02/14 [History] Gluc HCl/Andrew/Mv/Min Aa/Hb 162 [Glucosamine-Chondroitin Caplet] 1 tab PO DAILY 01/02/14 [History] Omeprazole [PriLOSEC] 20 mg PO DAILY 01/02/14 [History] Cinnamon Bark [Cinnamon] 1,000 mg PO DAILY 09/09/14 [History] L.acidoph,Paracasei, B.lactis [Probiotic] 1 cap PO DAILY 01/11/22 [History] Multivit-Min/FA/Lycopen/Lutein [Centrum Silver Tablet] 1 tab PO DAILY 01/11/22 [History] Ascorbic Acid [Vitamin C] 1,000 mg PO DAILY 02/22/24 [History] Atorvastatin [Lipitor] 80 mg PO HS 02/22/24 [History] Calcium Carbonate/Vitamin D3 [Calcium 600 mg-Vit D3 10 mcg (400 Unit)] 1 tab PO DAILY 02/22/24 [History] Losartan Potassium [Cozaar] 100 mg PO DAILY 02/22/24 [History] Montelukast Sodium 10 mg PO DAILY 02/22/24 [History] Ubidecarenone [Coenzyme Q10] 200 mg PO DAILY 02/22/24 [History] metFORMIN HCL [Glucophage] 500 mg PO BID 02/22/24 [History] Aspirin 325 mg PO W/SUPPER 03/02/24 [History] amLODIPine [Norvasc] 5 mg PO DAILY 30 Days #30 tab 03/03/24 [Rx] Follow up Appointment(s)/Referral(s): Dony Bravo DO [Primary Care Provider] - 1-2 days Patient Instructions/Handouts: Hypertensive Crisis (DC), Hypomagnesemia (DC) Activity/Diet/Wound Care/Special Instructions: Activity: As tolerated. Take breaks as needed. As we discussed at bedside, since being started on a new antihypertensive medication , it is important to change positions slowly from lying to sitting, sitting before standing, and standing before walking to allow your body time to adjust to changes in your blood pressures. Diet: Heart healthy and carb consistent diet. Avoid salts, or foods with hidden salts such as canned or boxed foods and frozen dinners. Extra salt makes your heart work harder and traps the fluid in your body for longer. Special Instructions: Take all of your medications as directed and remember to keep all of your doctor's appointments and follow-up as needed. Your hydrochlorothiazide was discontinued secondary to poorly controlled blood pressures and severe hypomagnesemia. You were started on amlodipine 5 mg daily in addition to your losartan 100 mg daily. It is important for you to take your blood pressure twice daily and document these findings and a daily log to bring with you to your next office visit with your PCP, Dr. Bravo to ensure changes can be made to this medication regimen if indicated based upon these findings. As we discussed, I am counting on you to start drinking 4 glasses of water EVERYDAY!! Recommend drinking one glass upon awakening, one with lunch, one glass with dinner and then one glass before you go to bed. Thank you for allowing us to participate in your care, it was truly a pleasure having you for our patient!!! . Discharge Disposition: HOME SELF-CARE
[2024-03-03] MEDS ORDERED: LOSARTAN 50 MG TAB PO SCH (18:00)
== END 2024-03-03 15:19 | disposition home or self-care (01) ==
LOC: EC 18:00 → 6NMEDSUR 20:31 → 1SOBS 03-03 10:06
PROVIDERS: ADMIT Internal Medicine; ATTEND Internal Medicine
DX: I16.0 Hypertensive urgency (principal); E83.42 Hypomagnesemia; E87.1 Hypo-osmolality and hyponatremia; E86.0 Dehydration; E11.51 Type 2 diabetes mellitus with diabetic peripheral angiopathy without gangrene; J44.9 Chronic obstructive pulmonary disease, unspecified; D75.839 Thrombocytosis, unspecified; E78.5 Hyperlipidemia, unspecified; I10 Essential (primary) hypertension; Z79.84 Long term (current) use of oral hypoglycemic drugs; Z79.82 Long term (current) use of aspirin; Z79.899 Other long term (current) drug therapy; Z85.3 Personal history of malignant neoplasm of breast; Z88.2 Allergy status to sulfonamides; Z88.1 Allergy status to other antibiotic agents; Z90.12 Acquired absence of left breast and nipple; Z95.818 Presence of other cardiac implants and grafts
CPT/HCPCS: 96365; 96366; 99284; 36415; 93005; 83880; 80053; 80048; 83735 ×2; 84484; 85025; 85610; 85730; 81003; 71046; G0378 ×3; J3475

== ENCOUNTER 2024-06-15 18:24 | Emergency (ER) | payer MEDICARE ==
--- NOTE | 2024-06-15 18:53 | ED ---
General Adult HPI - General Source: patient, RN notes reviewed, old records reviewed Mode of arrival: ambulatory Limitations: no limitations - History of Present Illness -: days(s) Radiation: non-radiation Consistency: constant Improves with: none Worsens with: none Associated Symptoms: denies other symptoms Treatments Prior to Arrival: none <Gallito Acosta - Last Filed: 06/22/24 17:36> - General Source: patient, RN notes reviewed Mode of arrival: ambulatory Limitations: no limitations <Song Jackson - Last Filed: 06/22/24 19:29> - General Stated complaint: high bp Time Seen by Provider: 06/15/24 18:43 - History of Present Illness Initial comments: This is an 83 female to ER with worsening hypertension at home. Patient's been taking blood pressure at home and having a pain completely elevated. But denies complaints no headache chest pain shortness of breath abdominal pain. Patient is taking medications as prescribed (Gallito Acosta) Quick note: This is an 83-year-old female with history of hypertension presenting with worsening hypertension. Patient states she woke this morning with SBP of 199 with the most recent being 218. Endorses daily use of losartan and atenolol which she has been taking daily as prescribed. Denies headache, visual changes, dizziness, nausea/vomiting or other symptoms. (Song Jackson) - Related Data Home Medications Medication Instructions Recorded Confirmed Fish Oil/Dha/Epa [Fish Oil 1,200 1 cap PO DAILY 01/02/14 03/02/24 mg Fish Oil] Gluc HCl/Andrew/Mv/Min Aa/Hb 162 1 tab PO DAILY 01/02/14 03/02/24 [Glucosamine-Chondroitin Caplet] Omeprazole [PriLOSEC] 20 mg PO DAILY 01/02/14 03/02/24 Cinnamon Bark [Cinnamon] 1,000 mg PO DAILY 09/09/14 03/02/24 L.acidoph,Paracasei, B.lactis 1 cap PO DAILY 01/11/22 03/02/24 [Probiotic] Multivit-Min/FA/Lycopen/Lutein 1 tab PO DAILY 01/11/22 03/02/24 [Centrum Silver Tablet] Ascorbic Acid [Vitamin C] 1,000 mg PO DAILY 02/22/24 03/02/24 Atorvastatin [Lipitor] 80 mg PO HS 02/22/24 03/02/24 Calcium Carbonate/Vitamin D3 1 tab PO DAILY 02/22/24 03/02/24 [Calcium 600 mg-Vit D3 10 mcg (400 Unit)] Losartan Potassium [Cozaar] 100 mg PO DAILY 02/22/24 03/02/24 Montelukast Sodium 10 mg PO DAILY 02/22/24 03/02/24 Ubidecarenone [Coenzyme Q10] 200 mg PO DAILY 02/22/24 03/02/24 metFORMIN HCL [Glucophage] 500 mg PO BID 02/22/24 03/02/24 Aspirin 325 mg PO W/SUPPER 03/02/24 03/02/24 Previous Rx's Medication Instructions Recorded amLODIPine [Norvasc] 5 mg PO DAILY 30 Days #30 tab 03/03/24 amLODIPine [Norvasc] 10 mg PO DAILY #30 tablet 06/15/24 Allergies Allergy/AdvReac Type Severity Reaction Status Date / Time sulfamethoxazole Allergy Anaphylaxis Verified 06/15/24 18:54 [From Bactrim] trimethoprim [From Bactrim] Allergy Anaphylaxis Verified 06/15/24 18:54 Review of Systems ROS Other: All systems not noted in ROS Statement are negative. <Gallito Acosta - Last Filed: 06/22/24 17:36> ROS Other: All systems not noted in ROS Statement are negative. <Song Jackosn - Last Filed: 06/22/24 19:29> ROS Statement: Those systems with pertinent positive or pertinent negative responses have been documented in the HPI. Past Medical History Past Medical History: Coronary Artery Disease (CAD), Cancer, Hyperlipidemia, Hypertension Additional Past Medical History / Comment(s): Breast - 1988. OSTEOPOROSIS. History of Any Multi-Drug Resistant Organisms: None Reported Past Surgical History: Breast Surgery, Hysterectomy, Orthopedic Surgery Additional Past Surgical History / Comment(s): left breast mastectomy, left leg stent, ankle/foot sx Past Anesthesia/Blood Transfusion Reactions: No Reported Reaction Past Psychological History: No Psychological Hx Reported Smoking Status: Former smoker Past Alcohol Use History: None Reported Additional Past Alcohol Use History / Comment(s): quit smoking 2009, smoked on and off since age 20, 1-2 ppd Past Drug Use History: None Reported - Past Family History Mother Family Medical History: Cancer Additional Family Medical History / Comment(s): breast Sister(s) Family Medical History: Cancer, Deep Vein Thrombosis (DVT) Additional Family Medical History / Comment(s): breast ca Brother(s) Family Medical History: Cancer Additional Family Medical History / Comment(s): colon <Song Jackson - Last Filed: 06/22/24 19:29> General Exam General appearance: alert, in no apparent distress Head exam: Present: atraumatic, normocephalic, normal inspection Eye exam: Present: normal appearance, PERRL, EOMI. Absent: scleral icterus, conjunctival injection, periorbital swelling ENT exam: Present: normal exam, mucous membranes moist Neck exam: Present: normal inspection. Absent: tenderness, meningismus, lymphadenopathy Respiratory exam: Present: normal lung sounds bilaterally. Absent: respiratory distress, wheezes, rales, rhonchi, stridor Cardiovascular Exam: Present: regular rate, normal rhythm, normal heart sounds. Absent: systolic murmur, diastolic murmur, rubs, gallop, clicks GI/Abdominal exam: Present: soft, normal bowel sounds. Absent: distended, tenderness, guarding, rebound, rigid Extremities exam: Present: normal inspection, full ROM, normal capillary refill. Absent: tenderness, pedal edema, joint swelling, calf tenderness Back exam: Present: normal inspection Neurological exam: Present: alert, oriented X3, CN II-XII intact Psychiatric exam: Present: normal affect, normal mood Skin exam: Present: warm, dry, intact, normal color. Absent: rash <Gallito Acosta - Last Filed: 06/22/24 17:36> <Song Jackson - Last Filed: 06/22/24 19:29> - General Exam Comments Initial Comments: Visual Physical Exam Vital signs reviewed General: Well-appearing, nontoxic, no acute distress. Head: Normocephalic, atraumatic Eyes: PERRLA, EOMI ENT: Airway patent Chest: Nonlabored breathing Skin: No visual rash, normal skin tone Neuro: Alert and oriented 3 Musculoskeletal: No gross abnormalities (Song Jackson) Course <Gallito Acosta - Last Filed: 06/22/24 17:36> Vital Signs 06/15/24 06/15/24 06/15/24 18:51 21:00 21:40 Temperature 98.1 F 98.0 F Pulse Rate 62 65 77 Respiratory 18 20 18 Rate Blood Pressure 209/101 157/75 174/89 O2 Sat by Pulse 92 L 92 L 98 Oximetry - Reevaluation(s) Reevaluation #1: Medical records reviewed (Gallito Acosta) Reevaluation #2: Patient symptoms improved (Gallito Acosta) Reevaluation #3: Patient informed of results questions answered (Gallito Acosta) Reevaluation #4: Was pt. sent in by a medical professional or institution (TE[employer] Vinson, GAS COLLECTION SYSTEM OPERATOR, urgent care, hospital, or prison...) When possible be specific @ -no Did you speak to anyone other than the patient for history (EMS, parent, family, police, friend...)? What history was obtained from this source @ -no Did you review nursing and triage notes (agree or disagree)? Why? @ -agree Are old charts reviewed (outside hosp., previous admission, EMS record, old EKG, old radiological studies, urgent care reports/EKG's, prison records)? Report findings @ -yes Differential Diagnosis (chest pain, altered mental status, abdominal pain women, abdominal pain men, vaginal bleeding, weakness, fever, dyspnea, syncope, headache, dizziness, GI bleed, back pain, seizure, CVA, palpatations, mental health, musculoskeletal)? @ -prior EKG interpreted by me (3pts min.). @ -yes X-rays interpreted by me (1pt min.). @ -no CT interpreted by me (1pt min.). @ -no U/S interpreted by me (1pt. min.). @ -no What testing was considered but not performed or refused? (CT, X-rays, U/S, labs)? Why? @ -none What meds were considered but not given or refused? Why? @ -none Did you discuss the management of the patient with other professionals (professionals i.e. [employer] Vinson, GAS COLLECTION SYSTEM OPERATOR, lab, RT, psych nurse, psychosocial rehabilitation counselor, dehydration unit operator, teacher, infantry officer, cyanide case hardener)? Give summary @ -no Was smoking cessation discussed for >3mins.? @ -no Was critical care preformed (if so, how long)? @ -no Were there social determinants of health that impacted care today? How? (Homelessness, low income, unemployed, alcoholism, drug addiction, transportation, low edu. Level, literacy, decrease access to med. care, correction, rehab)? @ -none Was there de-escalation of care discussed even if they declined (Discuss DNR or withdrawal of care, Hospice)? DNR status @ -no What co-morbidities impacted this encounter? (DM, HTN, Smoking, COPD, CAD, Cancer, CVA, ARF, Chemo, Hep., AIDS, mental health diagnosis, sleep apnea, morbid obesity)? @ -none Was patient admitted / discharged? Hospital course, mention meds given and route, prescriptions, significant lab abnormalities, going to OR and other pertinent info. @ - 83 female to ER for recheck of elevated blood pressure. Patient's blood pressure medication changed to increase coverage she is otherwise asymptomatic. No headache chest pain shortness of breath abdominal pain. Blood pressure improved throughout ER stay patient feels well and can be discharged home Discharged Undiagnosed new problem with uncertain prognosis? @ -no Drug Therapy requiring intensive monitoring for toxicity (Heparin, Nitro, Insulin, Cardizem)? @ -no Were any procedures done? @ -no Diagnosis/symptom? @ -Hypertension uncontrolled Acute, or Chronic, or Acute on Chronic? @ -Acute Uncomplicated (without systemic symptoms) or Complicated (systemic symptoms)? @ -Complicated Side effects of treatment? @ -no Exacerbation, Progression, or Severe Exacerbation? @ -exacerbation Poses a threat to life or bodily function? How? (Chest pain, [place], [place], pneumonia, PE, COPD, DKA, ARF, appy, cholecystitis, CVA, Diverticulitis, Homicidal, Suicidal, threat to staff... and all critical care pts) @ -yes elevated blood pressure (Gallito Acosta) EKG Findings - EKG Comments: EKG Findings:: EKG is sinus bradycardia 55 CA 189 QRS 88 QTc 391 - EKG Results: EKG: interpreted by ERMD <Gallito Acosta - Last Filed: 06/22/24 17:36> Medical Decision Making - Lab Data Result diagrams: 06/15/24 19:16 06/15/24 19:16 <Gallito Acosta - Last Filed: 06/22/24 17:36> - Lab Data Result diagrams: 06/15/24 19:16 06/15/24 19:16 <Song Jackson - Last Filed: 06/22/24 19:29> - Medical Decision Making 83 female to ER for recheck of elevated blood pressure. Patient's blood pressure medication changed to increase coverage she is otherwise asymptomatic. No headache chest pain shortness of breath abdominal pain. Blood pressure improved throughout ER stay patient feels well and can be discharged home (Gallito Acosta) I completed the quick note portion of this chart signed KELSI Horne (Song Jackson) - Lab Data Lab Results 06/15/24 06/15/24 Range/Units 19:16 19:16 WBC 8.9 (3.8-10.6) k/uL RBC 4.01 (3.80-5.40) m/uL Hgb 11.8 (11.4-16.0) gm/dL Hct 36.9 (34.0-46.0) % MCV 91.8 (80.0-100.0) fL MCH 29.4 (25.0-35.0) pg MCHC 32.1 (31.0-37.0) g/dL RDW 14.9 (11.5-15.5) % Plt Count 667 H (150-450) k/uL MPV 8.6 Neutrophils % 67 % Lymphocytes % 23 % Monocytes % 5 % Eosinophils % 2 % Basophils % 0 % Neutrophils # 5.9 (1.3-7.7) k/uL Lymphocytes # 2.1 (1.0-4.8) k/uL Monocytes # 0.5 (0-1.0) k/uL Eosinophils # 0.2 (0-0.7) k/uL Basophils # 0.0 (0-0.2) k/uL Sodium 138 (137-145) mmol/L Potassium 4.4 (3.5-5.1) mmol/L Chloride 101 (98-107) mmol/L Carbon Dioxide 28 (22-30) mmol/L Anion Gap 9 mmol/L BUN 15 (7-17) mg/dL Creatinine 0.58 (0.52-1.04) mg/dL Est GFR (CKD-EPI)AfAm >90 (>60 ml/min/1.73 sqM) Est GFR (CKD-EPI)NonAf 85 (>60 ml/min/1.73 sqM) Glucose 127 H (74-99) mg/dL Calcium 9.8 (8.4-10.2) mg/dL Total Bilirubin 0.7 (0.2-1.3) mg/dL AST 24 (14-36) U/L ALT 18 (4-34) U/L Alkaline Phosphatase 70 (38-126) U/L Total Protein 7.1 (6.3-8.2) g/dL Albumin 4.2 (3.5-5.0) g/dL Disposition Is patient prescribed a controlled substance at d/c from ED?: No Time of Disposition: 20:20 <Gallito Acosta - Last Filed: 06/22/24 17:36> <Song Jackson - Last Filed: 06/22/24 19:29> Clinical Impression: Hypertension, Hypertension, uncontrolled Disposition: HOME SELF-CARE Condition: Good Instructions (If sedation given, give patient instructions): Hypertension (ED) Prescriptions: amLODIPine [Norvasc] 10 mg PO DAILY #30 tablet Referrals: Dony Bravo DO [Primary Care Provider] - 1-2 days
[2024-06-15 19:33] LABS: Basophils % (A) 0 %; Eosinophils # (A) 0.2 k/uL (0-0.7); Eosinophils % (A) 2 %; HCT 36.9 % (34.0-46.0); HGB 11.8 gm/dL (11.4-16.0); Lymphocytes # (A) 2.1 k/uL (1.0-4.8); Lymphocytes % (A) 23 %; MCH 29.4 pg (25.0-35.0); MCHC 32.1 g/dL (31.0-37.0); MCV 91.8 fL (80.0-100.0); Mean Platelet Volume 8.6; Monocytes # (A) 0.5 k/uL (0-1.0); Monocytes % (A) 5 %; Neutrophils # (A) 5.9 k/uL (1.3-7.7); Neutrophils % (A) 67 %; Platelet Count 667 k/uL (150-450); RBC 4.01 m/uL (3.80-5.40); RDW 14.9 % (11.5-15.5); WBC 8.9 k/uL (3.8-10.6)
[2024-06-15 20:05] LABS: ALT 18 U/L (4-34); AST 24 U/L (14-36); African American GFR (CKD) >90 (>60 ml/min/1.73 sqM); Albumin 4.2 g/dL (3.5-5.0); Alkaline Phosphatase 70 U/L (38-126); Anion Gap 9 mmol/L; Blood Urea Nitrogen 15 mg/dL (7-17); Calcium 9.8 mg/dL (8.4-10.2); Carbon Dioxide 28 mmol/L (22-30); Chloride 101 mmol/L (98-107); Glucose 127 mg/dL (74-99); Non-African American GFR(CKD) 85 (>60 ml/min/1.73 sqM); Potassium 4.4 mmol/L (3.5-5.1); Sodium 138 mmol/L (137-145); Total Bilirubin 0.7 mg/dL (0.2-1.3); Total Protein 7.1 g/dL (6.3-8.2)
[2024-06-15] MEDS: LABETALOL 5 MG/ML VIAL MDV IVP STA (20:11)
[2024-06-15] MEDS: SODIUM CHLORIDE 0.9% 1,000 ML IV STA (20:12)
[2024-06-15] MEDS: amLODIPine 5 MG TAB PO STA (21:24)
[2024-06-15] MEDS: hydrALAZINE HCL 20 MG/ML 1 ML VIAL IVP STA (21:24)
[2024-06-15] MEDS: cloNIDine HCL 0.1 MG TAB PO STA (21:24)
[2024-06-15 21:46] VITALS: BP 174/89; PULSE 77; RESP 18; TEMP 98
== END 2024-06-15 21:51 | disposition home or self-care (01) ==
LOC: EC 18:24
DX: I10 Essential (primary) hypertension (principal); Z87.891 Personal history of nicotine dependence
CPT/HCPCS: 36415; 93005; 80053; 85025; 99284; 96374; 96375; 96361; J0360; J1920

== ENCOUNTER → 2024-07-14 | Outpatient (CLI) | payer MEDICARE ==
--- NOTE | 2024-07-14 15:09 | MM ---
Reason for Exam: Screening (asymptomatic). Last mammogram was performed 1 year(s) and 5 month(s) ago. Patient History: Menarche at age 13. First Full-Term at age 18. Left ovary removed at age 41. Right ovary removed at age 41. Hysterectomy at age 41. Postmenopausal. Breast cancer, left, age 47. Previous chemotherapy. Estrogen, ending at age 47. 2010, Benign Excisional Biopsy on the right side. 1987, Mastectomy on the Left side. Chemotherapy. Niece had breast cancer at or over age 50. Maternal cousin had breast cancer. Niece had breast cancer at or over age 50. Maternal aunt had breast cancer at or over age 50. Maternal aunt had breast cancer at or over age 50. Sister had breast cancer, age 64. Mother had breast cancer, age 89. Prior Study Comparison: 08/25/2020 Right Diagnostic Mammogram, [facility]. 11/23/2021 Right MG 3D diag mammo w/cad RT, [facility]. 02/05/2023 Right MG 3D diag mammo w/cad RT, [facility]. Tissue Density: Right: The breasts are heterogeneously dense, which may obscure small masses. Findings: There is no suspicious group of microcalcifications or new suspicious mass in either breast. Benign-appearing calcified. Overall Assessment: Benign, BI-RAD 2 Management: Screening Mammogram of the right breast in 1 year. . Patient should continue monthly self-breast exams. A clinical breast exam by your physician is recommended on an annual basis. This exam should not preclude additional follow-up of suspicious palpable abnormalities. Note on Deb scores and lifetime risk: 1. A Deb score greater than 3% is considered moderate risk. If this is the case, consider specialist referral to assess eligibility for a risk reducing agent. 2. If overall lifetime risk for the development of breast cancer is 20% or higher, the patient may qualify for future screening with alternating mammogram and breast MRI. [facility], , 07/14/2024 3:06 PM. Electronically signed and approved by: Juan F Anglin M.D. [facility]
== END | disposition home or self-care (01) ==
LOC: RADMAMWWP 14:12
PROVIDERS: ATTEND Family Medicine
DX: Z12.31 Encounter for screening mammogram for malignant neoplasm of breast (principal); R92.333 Mammographic heterogeneous density, bilateral breasts; Z78.0 Asymptomatic menopausal state; Z80.3 Family history of malignant neoplasm of breast; Z85.3 Personal history of malignant neoplasm of breast
CPT/HCPCS: 77067